=== PATIENT | male | born 1940 | race Caucasian/White ===

== ENCOUNTER → 2018-09-08 09:02 | Outpatient (CLI) | payer MEDICARE, OTHER, SELFPAY ==
--- NOTE | 2018-09-08 09:13 | AAVD_ITS ---
Reason For Study: AAA Aorta Measurements Aorta Doppler Measurements Proximal aorta measures3.15cm x 3.37cm. in cross-Peak systolic flow velocities within the proximal sectional axis. aorta measure 58 cm/sec. Proximal aorta measures3.12cm. in longitudinal Peak systolic flow velocities within the mid axis. aorta measure 81 cm/sec. Mid aorta measures2.08cm x 2.16cm. in cross- Peak systolic flow velocities within the distal sectional axis. aorta measure 62 cm/sec. Mid aorta measures2.04cm. in longitudinal axis. Distal aorta measures1.87cm x 1.94cm. in cross- sectional axis. Distal aorta measures1.76cm. in longitudinal axis. Left Iliac Artery Left iliac artery measures 1.03cm x 1.09 cm. in the cross-sectional axis. Left iliac artery measures 1.01 cm. in the longitudinal axis. Peak systolic velocity in the left iliac artery measures 109 cm/sec. Right Iliac Artery Right iliac artery measures 1.04cm x 0.98 cm. in the cross-sectional axis. Right iliac artery measures 1.03 cm. in the longitudinal axis. Peak systolic velocity in the right iliac artery measures 170 cm/sec. Procedure Aorta IVC Iliac vasculature or bypass grafts 01600. Mobile plaque noted Proximal Aorta. Exam performed in department. Interpretation Summary 1. 3.37 aortic aneurysm. 2. No aortoiliac stenosis. Ordering Physician: Adolfo Grossman Referring Physician: Zaki Wright Performed By: Margoth Marinelli, KAY, RVT
--- NOTE | 2018-09-08 09:13 | CDU_ITS ---
Reason For Study: Stenosis Rt. Velocities/BP Lt. Velocities/BP Prox CCA 31/0 cm/sec. Prox CCA 79/11 cm/sec. Mid CCA 26/0 cm/sec. Mid CCA 80/16 cm/sec. Dist CCA 44/0 cm/sec. Dist CCA 89/21 cm/sec. Rt ICA: No Flow. Prox ICA 261/52 cm/sec. Prox ECA 123/9 cm/sec. Mid ICA 117/24 cm/sec. Rt. Vert. 77/22 cm/sec. Dist ICA 64/27 cm/sec. Lt. ICA/CCA = 3.26. Prox ECA 283/35 cm/sec. Lt. Vert. 48/11 cm/sec. Right Extracranial There is heterogeneous, irregular atherosclerotic plaque noted in the right common carotid artery. There is heterogeneous, irregular atherosclerotic plaque noted in the right internal carotid artery. The right internal carotid artery is occluded. There is heterogeneous, irregular atherosclerotic plaque noted in the right external carotid artery. Antegrade flow is noted in the right vertebral artery. Left Extracranial There is heterogeneous, irregular atherosclerotic plaque noted in the left common carotid artery. There is heterogeneous, irregular atherosclerotic plaque noted in the left internal carotid artery. The atherosclerotic plaque causes acoustic shadowing. There is heterogeneous, irregular atherosclerotic plaque noted in the left external carotid artery. Antegrade flow is noted in the left vertebral artery. Procedure Carotid Duplex 32407. Prelim given to Gloria at Dr. Ferrell office. Exam performed in department. Interpretation Summary Moderate (50-69%) stenosis left extracranial internal carotid. Flow within the vertebral arteries is antegrade bilaterally. Right internal carotid artery is occluded. Ordering Physician: Adolfo Grossman Referring Physician: Zaki Wright Performed By: Isis CATALAN RDCS, Margoth and Student
--- NOTE | 2018-09-13 11:35 | LEAS ---
Arterial Study - Arterial Study Arterial Study: Date of scan 09/08/2018 X Interpreting physician: Dr. Grossman History: Patient with diabetes hyperlipidemia hypertension and coronary artery disease. Interpretation: Right lower extremity with fairly normal waveform down at the ankle out through the digits duplex shows triphasic flow with a PT with an ERIC 1.03 and a triphasic to biphasic waveform of the DP with an ERIC 0.97. Digit brachial index 0.66. Left lower extremity again adequate waveform down at the ankle out through the digits. Duplex shows triphasic flow the PT with an ERIC of 1.11 and biphasic at the DP with an ERIC 0.94. Digit brachial index 0.71. Impression: 1. No evidence of significant arterial occlusive disease at rest in this nonexercise patient with an ERIC of 1.03. 2. No evidence of significant arterial occlusive disease at rest and does not exercise patient with an ERIC of 1.11. 3. Borderline small vessel disease with the digit brachial index 0.66 on the right 0.71 on the left
--- NOTE | 2018-09-13 11:40 | LEAS_ITS ---
Arterial Study - Arterial Study Arterial Study: Date of scan 09/08/2018 X Interpreting physician: Dr. Grossman History: Patient with diabetes hyperlipidemia hypertension and coronary artery disease. Interpretation: Right lower extremity with fairly normal waveform down at the ankle out through the digits duplex shows triphasic flow with a PT with an ERIC 1.03 and a triphasic to biphasic waveform of the DP with an ERIC 0.97. Digit brachial index 0.66. Left lower extremity again adequate waveform down at the ankle out through the digits. Duplex shows triphasic flow the PT with an ERIC of 1.11 and biphasic at the DP with an ERIC 0.94. Digit brachial index 0.71. Impression: 1. No evidence of significant arterial occlusive disease at rest in this nonexercise patient with an ERIC of 1.03. 2. No evidence of significant arterial occlusive disease at rest and does not exercise patient with an ERIC of 1.11. 3. Borderline small vessel disease with the digit brachial index 0.66 on the right 0.71 on the left
== END ==
PROVIDERS: Family Provider Family Medicine; PCP Family Medicine; Referring Provider Surgery Vascular Surgery; Visit Provider Surgery Vascular Surgery
DX: I70.213 Atherosclerosis of native arteries of extremities with intermittent claudication, bilateral legs (principal); I71.4 Abdominal aortic aneurysm, without rupture; I11.9 Hypertensive heart disease without heart failure; I25.2 Old myocardial infarction; Z86.73 Personal history of transient ischemic attack (TIA), and cerebral infarction without residual deficits
CPT/HCPCS: 93880; 93922; 93978

== ENCOUNTER → 2021-03-05 07:53 | Outpatient (CLI) | payer MEDICARE, OTHER, SELFPAY ==
[2021-02-26 13:13] LABS: BUN 53 mg/dL (7-18)
[2021-02-26 15:09] LABS: Creatinine, Serum 1.63 mg/dL (0.70-1.30); EST Glomerular Filtration Rate 44 mL/min (>60); Est Glom Filt Rate - Afr Amer 53 mL/min (>60)
--- NOTE | 2021-03-05 07:56 | CT_ITS ---
STUDY: CTA OF THE ABDOMINAL AORTA AND BILATERAL LOWER EXTREMITIES REASON FOR EXAM: Male, 80 years old. AAA/STENOSIS/PAD/MYOCARDIAL INFACRTION/HEART DISEASE/HTN -- PT HAS VASCULAR STUDY AFTER CTA RADIATION DOSAGE (If Supplied By Facility): CTDIvol = ( 10.36 ) mGy, DLP = ( 1426.10 ) mGycm TECHNIQUE: Axial CT angiography multi-detector data acquisition was obtained from the hemidiaphragm to the bilateral feet following intravenous administration of IV 100mL Isovue-370. Axial images and MIP images were reconstructed from the axial data set. Post-processing of the angiographic images was performed, with multiplanar reformation and 3D reconstruction. Individualized dose optimization techniques were used for this CT. TECHNICAL QUALITY: Good COMPARISON: None. Descriptors of Narrowing: None (0%) Mild (< 50%) Moderate (50-70%) Severe (70-90%) Subtotal/Total Occlusion (90-100%) Non-Evaluable (technically non-diagnostic FINDINGS: Abdominal aorta: Borderline aneurysmal dilatation of the abdominal aorta measuring 2.9 x 2.0 cm. As described disease of aorta diffusely. Infrarenal abdominal aortic aneurysm measuring 3.8 x 4.1 cm, slightly increased in the interval, previously measuring 3.9 cm in maximum dimension. There is a mural thrombus at this level. Celiac and superior mesenteric arteries: Atherosclerotic disease with moderate to severe narrowing at the origin of the celiac artery. Mild narrowing at the origin of the superior mesenteric artery. Inferior mesenteric artery: No demonstrated narrowing. Right renal artery(arteries): Atherosclerotic disease with no significant narrowing. Left renal artery(arteries): Atherosclerotic disease with no significant narrowing. Right common iliac artery: Occlusion of the right common iliac artery, new in the interval. Right external iliac artery: Distal reconstitution with calcified of the splenic disease and areas of mild to moderate narrowings. Right internal iliac artery: Distal reconstitution with calcified of the splenic disease and areas of mild to moderate narrowings. Left common iliac artery: Calcified atherosclerotic disease with no significant narrowing, no aneurysm. Left external iliac artery: Calcified atherosclerotic disease with no significant narrowing, no aneurysm. Left internal iliac artery: Calcified atherosclerotic disease with no significant narrowing, no aneurysm. RIGHT LOWER EXTREMITY Right common femoral artery: Calcified atherosclerotic disease with approximately 50% narrowing. Right profundus femoris: No significant narrowing. Right superficial femoral: Occlusion of the right superficial femoral artery. Underlying calcified atherosclerotic disease. Right popliteal artery: Atherosclerotic disease with reconstitution of the popliteal artery. Right tibioperoneal trunk: Atherosclerotic disease with areas of trhs-sv-zbhcwigc stenosis. No occlusion. Right anterior tibial artery: Atherosclerotic disease with areas of [id number] stenosis. No occlusion. Right posterior tibial artery: Atherosclerotic disease with areas of vtgj-jg-ztnxaprq stenosis. No occlusion. Right peroneal artery: Atherosclerotic disease with areas of fvzc-fs-fahodpsz stenosis. No occlusion. LEFT LOWER EXTREMITY Left common femoral artery: Atherosclerotic disease with areas of mild stenosis. Left profundus femoris: No demonstrated narrowing. Left superficial femoral: Describe disease more severe distally with areas of moderate stenosis. Left popliteal artery: Atherosclerotic disease with multiple areas of moderate stenosis. Left tibioperoneal trunk: Atherosclerotic disease with no occlusion or high-grade stenosis. Left anterior tibial artery: Continuous vessel runoff to the level of the ankle. Left posterior tibial artery: Atherosclerotic disease more severe to the distal one third of the ankle with multiple areas of high-grade stenosis and possible occlusions distally. Left peroneal artery: Calcified atherosclerotic disease through the peroneal artery more severe otherwise continuous vessel runoff to the ankle. CT/CTA Abd w/Runoff W/WO Contrast IMPRESSION: Occlusion of the right common iliac artery with the distal reconstitution of the right external iliac artery. Occlusion of the right superficial femoral artery with likely distal reconstitution otherwise three-vessel runoff below the right knee. Atherosclerotic disease of the left lower extremities with areas of moderate stenosis, more significant at the popliteal and distal superficial artery. Two-vessel runoff through the anterior tibial artery peroneal artery below the knee with possible distal portions of the posterior tibial artery. Infrarenal aortic aneurysm with mural thrombus, slightly progressed in size in the interval. Electronically Signed: Génesis Saravia MD at 4:59 EDT , Service support ,
--- NOTE | 2021-03-05 08:23 | CDU_ITS ---
Reason For Study: Carotid stenosis Rt. Velocities/BP Lt. Velocities/BP Prox CCA 29.4 cm/sec. Prox CCA 61.9/13.5 cm/sec. Mid CCA 35.8 cm/sec. Mid CCA 36.6/13.5 cm/sec. Dist CCA 37.9/5.9 cm/sec. Dist CCA 52/15.7 cm/sec. Known ICA Occlusion. Prox ICA 236.7/55.7 cm/sec. Prox ECA 130.2/9.7 cm/sec. Mid ICA 96.6/18.9 cm/sec. Rt. Vert. 64.1/12.4 cm/sec. Dist ICA 73.6/20.6 cm/sec. Lt. ICA/CCA = 4.55. Prox ECA 117.4/20.6 cm/sec. Lt. Vert. 43.7/11.6 cm/sec. Right Extracranial There is heterogeneous, irregular atherosclerotic plaque noted in the right common carotid artery. The right internal carotid artery is occluded. There is heterogeneous, irregular atherosclerotic plaque noted in the right external carotid artery. Antegrade flow is noted in the right vertebral artery. Left Extracranial There is heterogeneous, irregular atherosclerotic plaque noted in the left common carotid artery. There is heterogeneous, irregular atherosclerotic plaque noted in the left internal carotid artery. The atherosclerotic plaque causes acoustic shadowing. There is heterogeneous, irregular atherosclerotic plaque noted in the left external carotid artery. Antegrade flow is noted in the left vertebral artery. Procedure Carotid Duplex 64734. This is a Carotid Duplex examination using B-mode, color flow and specral Doppler. Exam performed in department. VL/Carotid Duplex Ultrasound Interpretation Summary Moderate (50-69%) stenosis left extracranial internal carotid. Flow within the vertebral arteries is antegrade bilaterally. The right internal carotid artery appears to be totally occluded. Ordering Physician: Adolfo Grossman Referring Physician: Zaki Wright MD Performed By: Shira Gardner RVT
== END ==
PROVIDERS: PCP Family Medicine; Referring Provider Surgery Vascular Surgery; Visit Provider Surgery Vascular Surgery
DX: I71.4 Abdominal aortic aneurysm, without rupture (principal); I10 Essential (primary) hypertension; I73.9 Peripheral vascular disease, unspecified; I51.9 Heart disease, unspecified; I25.2 Old myocardial infarction; I63.231 Cerebral infarction due to unspecified occlusion or stenosis of right carotid arteries
CPT/HCPCS: 36415; 75635; 82565; 84520; 93880; Q9967

== ENCOUNTER 2022-02-04 08:33 | Outpatient (CLI) | payer MEDICARE, OTHER, SELFPAY ==
--- NOTE | 2022-02-04 08:55 | AAVD_ITS ---
Reason For Study: AAA Aorta Measurements Aorta Doppler Measurements Proximal aorta measures3.60 x 3.75cm. in cross- Peak systolic flow velocities within the proximal sectional axis. aorta measure 35.5 cm/sec. Proximal aorta measures3.55cm. in longitudinal Peak systolic flow velocities within the mid aorta axis. measure 35.5 cm/sec. Mid aorta measures2.29 x 2.27cm. in cross- Peak systolic flow velocities within the distal sectional axis. aorta measure 28.9 cm/sec. Mid aorta measures2.28cm. in longitudinal axis. Distal aorta measures2.01 x 2.01cm. in cross- sectional axis. Distal aorta measures2.02cm. in longitudinal axis. Left Iliac Artery Left iliac artery measures 1.07 x 1.07 cm. in the cross-sectional axis. Left iliac artery measures 1.07 cm. in the longitudinal axis. Peak systolic velocity in the left iliac artery measures 57.2 cm/sec. Right Iliac Artery Right iliac artery measures 0.99 x 0.99 cm. in the cross-sectional axis. Right iliac artery measures 1.02 cm. in the longitudinal axis. Peak systolic velocity in the right iliac artery measures 54.5 cm/sec. Procedure Aorta IVC Iliac vasculature or bypass grafts [id number]. Exam performed in department. VL/Abd Aortic/IVC Duplex scan Interpretation Summary No evidence of aortic iliac stenosis. 3.6 cm aortic aneurysm noted. Ordering Physician: Adolfo Grossman Referring Physician: Zaki Wright MD Performed By: Shira Gardner RVT
--- NOTE | 2022-02-04 08:56 | ART_ITS ---
Reason For Study: Stricture of artery Procedure A bilateral lower extremity continuous wave Doppler with analog waveform analysis and ankle brachial indexes. Left Segmental Pressures Left brachial= 112mmHg. Left posterior tibial artery = 76mmHg. Left dorsalis pedis artery = 76mmHg. Left digit = 72 mmHg. The left dorsalis pedis waveforms are biphasic. The left posterior tibial artery waveforms are biphasic. Right Segmental Pressures Right brachial= 117mmHg. Right posterior tibial artery = 59mmHg. Right dorsalis pedis artery = 64mmHg. Right digit = 41 mmHg. The right dorsalis pedis waveforms are monophasic. The right posterior tibial artery waveforms are monophasic. Indices The right ankle brachial index by the dorsalis pedis is 0.55. The right ankle brachial index by the posterior tibial artery is 0.50. The right digital-brachial index is 0.35. The left ankle brachial index by the dorsalis pedis is 0.65. The left ankle brachial index by the posterior tibial artery is 0.65. The left digital-brachial index is 0.62. VL/Ankle Brachial Index Interpretation Summary Right lower extremity with moderate occlusive disease with monophasic flow note d at the ankle. ERIC 0.55 with a digit brachial index 0.35. Left lower extremity with moderate occlu sive disease at rest with biphasic flow noted in ERIC 0.65 and a digit brachial index of 0.62. Ordering Physician: Adolfo Grossman Referring Physician: Zaki Wright MD Performed By: Shira Gardner RVT
== END 2022-02-04 23:59 | disposition home or self-care (01) ==
LOC: CVS 08:48
PROVIDERS: PCP Family Medicine; Visit Provider Surgery Vascular Surgery
DX: I70.213 Atherosclerosis of native arteries of extremities with intermittent claudication, bilateral legs (principal); I71.4 Abdominal aortic aneurysm, without rupture; I77.1 Stricture of artery
CPT/HCPCS: 93922; 93978

== ENCOUNTER → 2023-03-24 | Outpatient (CLI) | payer MEDICARE, OTHER, SELFPAY ==
--- NOTE | 2023-03-24 07:45 | ART_ITS ---
Reason For Study: stricture of artery Procedure A bilateral lower extremity continuous wave Doppler with analog waveform analysis and ankle brachial indexes. Left Segmental Pressures Left brachial= 135mmHg. Left posterior tibial artery = 89mmHg. Left dorsalis pedis artery = 114mmHg. Left digit = 77 mmHg. The left dorsalis pedis waveforms are biphasic. The left posterior tibial artery waveforms are biphasic. Right Segmental Pressures Right brachial= 131mmHg. Right posterior tibial artery = 99mmHg. Right dorsalis pedis artery = 84mmHg. Right digit = 58 mmHg. The right dorsalis pedis waveforms are monophasic. The right posterior tibial artery waveforms are monophasic. Indices The right ankle brachial index by the dorsalis pedis is .62. The right ankle brachial index by the posterior tibial artery is .73. The right digital-brachial index is .43. The left ankle brachial index by the dorsalis pedis is .84. The left ankle brachial index by the posterior tibial artery is .66. The left digital-brachial index is .57. VL/Ankle Brachial Index Interpretation Summary Bilateral mild disease with right monophasic and ERIC 0.73 and left biphasic and ERIC 0.84. DBI 0.43 and 0.57. Ordering Physician: Adolfo Grossman Performed By: Darian Crook RVT
--- NOTE | 2023-03-24 07:45 | AAVD_ITS ---
Reason For Study: AAA Aorta Measurements Aorta Doppler Measurements Proximal aorta measures3.3 x 3.9cm. in cross- Peak systolic flow velocities within the proximal sectional axis. aorta measure 36.1 cm/sec. Proximal aorta measures3.3cm. in longitudinal Peak systolic flow velocities within the mid aorta axis. measure 37.9 cm/sec. Mid aorta measures2.49 x 2.58cm. in cross- Peak systolic flow velocities within the distal sectional axis. aorta measure 32.4 cm/sec. Mid aorta measures2.38cm. in longitudinal axis. Distal aorta measures1.83 x 1.94cm. in cross- sectional axis. Distal aorta measures1.9cm. in longitudinal axis. Left Iliac Artery Left iliac artery measures .96 x .89 cm. in the cross-sectional axis. Left iliac artery measures .91 cm. in the longitudinal axis. Peak systolic velocity in the left iliac artery measures 90.4 cm/sec. Right Iliac Artery Right iliac artery measures 1.2 x 1.34 cm. in the cross-sectional axis. Right iliac artery measures 1.25 cm. in the longitudinal axis. Peak systolic velocity in the right iliac artery measures 119.4 cm/sec. Procedure Aorta IVC Iliac vasculature or bypass grafts [id number]. The exam was diagnostic. Exam performed in department. VL/Abd Aortic/IVC Duplex scan Interpretation Summary Proximal aortic aneurysm 3.3 x 3.9cm. Ordering Physician: Adolfo Grossman Performed By: Darian Crook RVT
--- NOTE | 2023-03-24 07:45 | CDU_ITS ---
Reason For Study: carotid stenosis Rt. Velocities/BP Lt. Velocities/BP Prox CCA 20.1 cm/sec. Prox CCA 56.0/6.9 cm/sec. Mid CCA 40.9 cm/sec. Mid CCA 57.0/16.3 cm/sec. Dist CCA 21.1 cm/sec. Dist CCA 49.4/18.2 cm/sec. Prox ECA 99.5/8.8 cm/sec. Prox ICA 233.7/43.0 cm/sec. Rt. Vert. 68.3/17.3 cm/sec. Mid ICA 82.6/17.6 cm/sec. Dist ICA 64.2/20.0 cm/sec. Lt. ICA/CCA = 4.1. Prox ECA 59.8/8.8 cm/sec. Lt. Vert. 64.1/12.4 cm/sec. Right Extracranial There is heterogeneous, irregular atherosclerotic plaque noted in the right common carotid artery. The right internal carotid artery is occluded. There is heterogeneous, irregular atherosclerotic plaque noted in the right external carotid artery. Antegrade flow is noted in the right vertebral artery. Left Extracranial There is heterogeneous, irregular atherosclerotic plaque noted in the left common carotid artery. There is heterogeneous, irregular atherosclerotic plaque noted in the left internal carotid artery. There is heterogeneous, irregular atherosclerotic plaque noted in the left external carotid artery. Antegrade flow is noted in the left vertebral artery. Unable to obtain velocities through the bulb due to calcified plaque. Procedure Carotid Duplex [id number]. This is a Carotid Duplex examination using B-mode, color flow and specral Doppler. The exam was diagnostic. Exam performed in department. VL/Carotid Duplex Ultrasound Interpretation Summary The right internal carotid artery appears to be totally occluded. Moderate (50- 69%) stenosis left extracranial internal carotid. Flow within the vertebral arteries is antegrade bilaterally. Ordering Physician: Adolfo Grossman Performed By: Darian Crook RVT
== END | disposition home or self-care (01) ==
LOC: CVS 07:44
PROVIDERS: PCP Family Medicine; Referring Provider Surgery Vascular Surgery; Visit Provider Surgery Vascular Surgery
DX: Z48.812 Encounter for surgical aftercare following surgery on the circulatory system (principal); I77.1 Stricture of artery; I70.213 Atherosclerosis of native arteries of extremities with intermittent claudication, bilateral legs; I71.40 Abdominal aortic aneurysm, without rupture, unspecified; I65.23 Occlusion and stenosis of bilateral carotid arteries
CPT/HCPCS: 93880; 93922; 93978

== ENCOUNTER 2023-08-19 15:40 | Inpatient (IN) | payer MEDICARE, OTHER, SELFPAY ==
[2023-08-19 16:17] VITALS: BP 111/70; PULSE 90; RESP 20; TEMP 36; O2SAT 94; BMI 24.0
[2023-08-19 17:16] VITALS: BMI 24.0
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
[2023-08-19 19:17] LABS: Vancomycin, Trough Level 30.1 ug/mL (5.0-15.0)
--- NOTE | 2023-08-19 19:39 | PCM.RX.CS ---
Consult Antibiotic Management Pharmacy has been consulted to manage selected antiobiotic: Vancomycin Type of Intervention Type of Consult: New start Suspected Infection Suspected Infection: Other Labs Labs: Vancomycin Trough 30.1 ug/mL (5.0-15.0) H 08/19/23 18:30 Goal Trough Goal Trough: 15-20 mcg/mL Pharmacy Plan for Drug Dosing Pharmacy Plan for Drug Dosing: NEW START IV VANCOMYCIN Consulting Physician: Dr. Tello Indication: Other Goal Trough: 15-20 SrCr: 1.06 (lab 08/19 from outside facility) CrCl: 53 mL/min Comments: Patient was on vancomycin 750mg IV Q24hr at outside facility. last administration time was 08/19 @1041. Nursing ordered a vancomycin trough upon admission which resulted in a value of 30.1; however, this was only 8hrs from last administered dose. Vancomycin Dose: If trough is within therapeutic range (15-20) may resume previous dose of 750mg IV Q24hr. Will not start vancomycin until trough results tomorrow to ensure pt is within therapeutic range. NOTE: Stop date on vancomycin will be 09/02/23 Pending Level: *RANDOM* level pending 08/20/23 @1000 Pharmacy Service will continue to monitor and adjust dosing as required.
[2023-08-19] MEDS: Atorvastatin Calcium 80 MG Tablet GT (21:18)
[2023-08-19] MEDS: MELATONIN 3 MG TABLET GT (21:18)
[2023-08-19] MEDS: Famotidine 20 MG Tablet PO (21:18)
[2023-08-19] MEDS: Carvedilol 12.5 MG Tablet GT (21:18)
[2023-08-19] MEDS: guaiFENesin 10 ML UDC (200MG/10ML) GT (21:18)
[2023-08-19] MEDS: Chlorhexidine 480 ML 15 ML PO (21:19)
[2023-08-19] MEDS: QUEtiapine 25 MG Tablet GT (21:19)
[2023-08-19] MEDS: Ezetimibe 10 MG Tablet GT (21:19)
[2023-08-19] MEDS: Jevity 1.5 1,000 ML 55 ML GT (21:20)
[2023-08-19] MEDS: Piperacil/Tazobactam 3.375 GM in 0.9% Normal Saline (50mL MB+) 50 ML IV (21:55)
[2023-08-19 22:00] VITALS: BP 100/66; PULSE 83; RESP 16; TEMP 36.6; O2SAT 100
[2023-08-19 22:53] LABS: Bedside Glucose 139 mg/dL (74-106)
[2023-08-19 23:43] VITALS: O2SAT 100
--- NOTE | 2023-08-20 02:25 | NURSING ---
PT pulled PEG tube out; area cleansed and covered with ABD pad; placed call to Dr. Tello, left voice message to return call.
[2023-08-20] MEDS: Piperacil/Tazobactam 3.375 GM in 0.9% Normal Saline (50mL MB+) 50 ML IV ×3 (04:37→21:14)
[2023-08-20 05:34] LABS: Bedside Glucose 123 mg/dL (74-106)
--- NOTE | 2023-08-20 05:55 | PCM.HOSP.N ---
Hospitalist Note Received message from nursing staff that patient pulled out his PEG tube at around 5:30 AM. Patient was transferred here from [facility] on 08/19. Per the nurse, patient has been quite agitated since arriving here and has been pulling at his lines and trying to take his gown off. Nurse, she put a type of padding over the PEG tube site for now. Before placing the padding, there was no overt drainage from the site. Does not appear to be an urgent issue, but patient will need his PEG tube replaced in order to receive nutrition going forward. Unclear if patient will need admitted to the hospital for this or not. Will discuss with my day team partners shortly on the best course of action for the patient.
[2023-08-20 07:23] LABS: Hemoglobin 10.3 g/dL (13.0-16.5); Mean Corp Hgb Conc 29.4 g/dL (32-36); Mean Corpuscular Hgb 27.5 pg (27.0-32.0); Mean Corpuscular Volume 93.6 fL (80-94); Mean Platelet Vol. 10.1 fl (6.2-12.0); Platelet Count 246 K/mm3 (150-450); RBC Distribution Width CV 17.2 % (11.6-14.6); RBC Distribution Width SD 58.8 fl (35.1-43.9); Red Blood Count 3.74 M/mm3 (4.6-6.2); White Blood Count 8.9 K/mm3 (4.4-11.0)
[2023-08-20 08:00] VITALS: BP 119/50; PULSE 86; RESP 16; TEMP 36.7; O2SAT 99
[2023-08-20 08:04] LABS: ALB/GLOB Ratio 0.6 RATIO (0.9-2.4); AST(SGOT) 27 U/L (15-37); Alanine Aminotransfer ALT/SGPT 37 U/L (16-61); Albumin, Serum 2.7 g/dL (3.2-5.0); Alkaline Phosphatase 105 U/L (45-117); Anion Gap 6 (5-15); BUN 49 mg/dL (7-18); BUN/Creat Ratio 35.3 RATIO (10-20); Calcium,Total 10.9 mg/dL (8.5-10.1); Chloride 106 mmol/L (98-107); Creatinine, Serum 1.39 mg/dL (0.70-1.30); EST Glomerular Filtration Rate 52 mL/min (>60); Est Glom Filt Rate - Afr Amer 63 mL/min (>60); Estimated Creatinine Clearance 41.01 ml/min; Globulin 4.6 g/dL (2.2-4.2); Glucose 151 mg/dL (74-106); Magnesium 2.4 mg/dL (1.6-2.6); Phosphorus 3.9 mg/dL (2.5-4.9); Potassium 4.4 mmol/L (3.5-5.1); Protein, Total 7.3 g/dL (6.4-8.2); Sodium Level 138 mmol/L (136-145); Uric Acid 8.4 mg/dL (3.5-7.2)
[2023-08-20 08:32] VITALS: O2SAT 100
[2023-08-20 10:36] LABS: Vancomycin, Random Level 23.2 ug/mL (0.0-15.0)
--- NOTE | 2023-08-20 11:00 | NURSING ---
Patient had pulled his peg tube during the night. Dr. Tello will speak to Dr. Viramontes for consult to replace peg tube. aware and agreeing. Patient also had gross hematuria around penile area this Am when this nurse took over the shift and no urine drainage noted and Serna replaced by this nurse so patient must have pulled that out as well. Patient is restless and can be agitated and combative. He will follow commands but only for a short time. Alert to self at times at the most from this nurse. Patient will whisper things that do not make sense. Will continue to montor.
[2023-08-20] MEDS: Dext 5%-0.45% NS 1,000 ML 75 ML IV (11:07)
[2023-08-20] MEDS: Chlorhexidine 480 ML 15 ML PO ×2 (11:42→21:17)
[2023-08-20] MEDS: Insulin Lispro 100 UNIT/ML INSULN.PEN SC ×3 (11:43→23:14)
--- NOTE | 2023-08-20 12:06 | EKG12_ITS ---
Test Reason : CONFUSION Blood Pressure : / mmHG Vent. Rate : 121 BPM Atrial Rate : 375 BPM P-R Int : 000 ms QRS Dur : 092 ms QT Int : 322 ms P-R-T Axes : 000 103 034 degrees QTc Int : 457 ms Atrial fibrillation with premature ventricular or aberrantly conducted complexes Nonspecific ST and T wave abnormality Abnormal ECG Confirmed by MD ROCCO, HERMINIA ([id number]), technical writer and editor MINOO AYALA ([id number]) on 09/06/2023 11:17:22 AM Referred By: Jodi Tello Confirmed By:HERMINIA VALIENTE MD
[2023-08-20 12:09] LABS: Bedside Glucose 150 mg/dL (74-106)
[2023-08-20] MEDS: Enoxaparin 40 MG/0.4 ML Syringe SC (12:54)
[2023-08-20 13:35] VITALS: BP 115/60; PULSE 88
[2023-08-20] MEDS: Ziprasidone IM 20 MG/ML VIAL 10 MG IM (13:38)
[2023-08-20] MEDS: dilTIAZem 25 MG/5 ML Vial 10 MG IV BOLUS (13:41)
[2023-08-20] MEDS: cloNIDine HCl 0.1 MG Patch TD (14:00)
[2023-08-20 14:01] VITALS: BP 125/59; PULSE 62
[2023-08-20] MEDS: MorphINE SOLN 10 MG/0.5 ML PO.SYRINGE 5 MG SL ×2 (14:18→19:21)
--- NOTE | 2023-08-20 15:17 | PCM.RU.PYE ---
Admission Information Primary Diagnosis:: Debility due to multi trauma Status Changes from Prescreening?: No changes Identified Actual Problem List:: DVT, Infection, Skin Intergrity, Pain, ALteration in Cmfrt, Cognitve Impr/Memory Loss, Alteration in Sleep, Alteration in Nutrition, Mobility Impaired, Self Care Deficit, Know.Dfct/Disease Process, BP, Hypertension and Fluid Change-Dehydration Potential Problem List:: DVT, Bleeding, Infection, UTI, Aspiration, Falls, Skin Integrity and Depression Risk of Complications DVT: MIC Hose and - (Lovenox 40 mg subcu daily) Bleeding: Monitor Lab Values, Nursing to Teach Precautions for anti-coagulation therapy., Wound, if applicable, to be assessed every shift. and Stroke patients assessed for lethargy or change in status. Infection: Clinical Staff to Monitor for S/S of infection: and S/S of infection include fever, redness, warmth, etc. Urinary Tract Infection: Monitor for frequency, burning, discomfort, or incontinence. and Nursing will obtain urine sample for urinalysis and C&S when ordered. Aspiration: Clinical staff will monitor for coughing, drooling, congestion., Speech will evaluate swallowing and dsyphasia. and Nursing will monitor patient swallowing during meals. Falls: Patient will be evaluated for Fall Precautions and Patient will be placed on Fall Precautions as indicated per protocol. Skin Breakdown: Nursing will assess skin daily using assessment tool. and Nursing will place on Skin Breakdown Precautions as indicated. Pain: Clinical staff will assess patient's pain level per protocol., Medications will be given, if needed, and the pain level reassessed. and Other methods: Massage, distraction, decrease stimulus, etc. used PRN. Plan of Care Patient requires physician specializing in physical medicine and rehab oversight to provide close medical supervision of rehab issues including: Pain Management, Sleep Problems, Bowel and Bladder, Medical and co-morbidity Management, DVT prophylaxis, Rehabilitation Leadership and Coordination of treatment team Patient needs Physical Therapy: For a minimum of 1 hour and At least 5 out of 7 days Patient needs Physical Therapy to improve:: Mobility, Strengthening, Transfers, Stretching, ROM, Endurance, Stairs, Gait and Balance Patient needs Occupational Therapy: For a minimum of 1 hour and At least 5 out of 7 days Patient needs Occupational Therapy to improve ADL's incl.: Eating, Grooming, Bathing, Dressing, Toileting, Toilet transfers, Community Reintegration, Higher functioning activities, Household tasks, Adaptive Equipment, Splinting and Other activities as determined Patient requires speech therapy: For a minimum of 1 hour and At least 5 out of 7 days Patient requires speech therapy for: Swallowing, Cognition, Language Skills and Compensatory Strategies Patient requires 24/7 Rehabilitation Nursing for: Pain Issues, Identifying and preventing risk factors, Monitoring and reporting current medical conditions, Assisting with ambulation, transfer, and all ADL's, Teaching patients about disease process and medications, Family teaching, Providing safe environment, Bowel and Bladder Issues, Skin integrity and Medication Management Patient needs Programmer Developer/ Case Management for: Discharge Planning, Arranging Home Equipment or Services and Family Interventions Patient needs Dietary and Nutrition Services for: Adequate Nutrition, Nutritional Supplements and Nutritional Education Goals Patient will remain: free from falls Patient will perform bed mobility at: MOD I level of assist. Patient will complete transfers from bed to chair at: - (min assist to stand and pivot to the BSC and the chair by DC.) Patient will ambulate: - (125 feet with minimal assistance with a front wheel walker) Patient will complete upper body dressing at: MOD I level of assist. (at least 80% of the time) Patient will complete lower body dressing at: - (Moderate assistance) Patient will complete toileting at: - (will discuss with OT what the goals are for this and for toilet transfer and bathing. ) Patient will achieve: - (1 curb step with minimal assistance and a wheeled walker) Patient will have pain level of: of 3 or less Patient's skin will: remain intact Patient will receive: adequate nutrition. Discharge Planning Pt Prognosis for Sig. Practical Improv. w/in Reasonable Time: Fair Estimated Length of stay (days): 40 Anticipated D/C Destination: TBD Was Preadmission Assessment Accurate?: Yes
--- NOTE | 2023-08-20 16:16 | PCM.RX.CS ---
Consult Antibiotic Management Pharmacy has been consulted to manage selected antiobiotic: Vancomycin Type of Intervention Type of Consult: Follow-up Suspected Infection Suspected Infection: Other Labs Labs: Sodium 138 mmol/L (136-145) 08/20/23 07:12 Potassium 4.4 mmol/L (3.5-5.1) 08/20/23 07:12 Chloride 106 mmol/L (98-107) 08/20/23 07:12 Carbon Dioxide 26.0 mmol/L (21.0-32.0) 08/20/23 07:12 Anion Gap 6 (5-15) 08/20/23 07:12 BUN 49 mg/dL (7-18) H 08/20/23 07:12 Creatinine 1.39 mg/dL (0.70-1.30) H 08/20/23 07:12 Est GFR (MDRD) Af Amer 63 mL/min (>60) 08/20/23 07:12 Est GFR (MDRD) Non-Af 52 mL/min (>60) L 08/20/23 07:12 BUN/Creatinine Ratio 35.3 RATIO (10-20) H 08/20/23 07:12 Glucose 151 mg/dL (74-106) H 08/20/23 07:12 Vancomycin Trough 30.1 ug/mL (5.0-15.0) H 08/19/23 18:30 Random Vancomycin 23.2 ug/mL (0.0-15.0) H 08/20/23 10:15 Goal Trough Goal Trough: 15-20 mcg/mL Pharmacy Plan for Drug Dosing Pharmacy Plan for Drug Dosing: VANCOMYCIN LEVEL RECEIVED Current Vancomycin Dose: on hold. Number of Doses Received: pt received doses from previous facility. Vancomycin Level: 1st level was 30.1 (8 hours post admin), next random level was 23.2 Hours Since Last Dose: ~24 hours since last dose Renal Function: SrCr 1.39 Renal Function Trend: SrCr increasing Lab/Micro: Vancomycin Plan/Comments: recommend continuing to hold vancomycin until random level is < 20. Pending Level: 08/21/23 at 1000 Pharmacy Service will continue to monitor and adjust dosing as required. Follow-Up Labs Follow-Up Labs: Trough: Vancomycin (08/21/23 at 1000 (random level))
[2023-08-20] MEDS: Haloperidol Lactate 5 MG/ML Vial 2 MG IM ×2 (16:47→21:18)
[2023-08-20 17:53] LABS: Bedside Glucose 159 mg/dL (74-106)
[2023-08-20 19:37] VITALS: BP 126/70; PULSE 67; RESP 17; TEMP 36.6; O2SAT 99
[2023-08-20 21:00] VITALS: BMI 24.0
--- NOTE | 2023-08-20 21:29 | NURSING ---
Pt restless in bed. Staff found pillows thrown onto floor. Pt tugging at MULTANI and IV, fidgety, and agitated. PRN Haldol given. Pt repositioned in bed and lights dimmed.
[2023-08-20 22:00] VITALS: PULSE 67; RESP 15; O2SAT 93
[2023-08-21 00:23] LABS: Bedside Glucose 159 mg/dL (74-106)
[2023-08-21] MEDS: MorphINE SOLN 10 MG/0.5 ML PO.SYRINGE 5 MG SL ×2 (00:27→23:56)
--- NOTE | 2023-08-21 00:57 | NURSING ---
Pt continues to be restless and fidgety. Pt reclining in bed but has not slept as yet. Roxanol PRN given d/t continuous restlessness and facial grimacing. Pt continues to remove bilat Prevalon cushioned boots. Pillows and blankets are continually disheveled. Pt not relaxing in bed with arms in motion and legs squirming from side to side of bed.
[2023-08-21] MEDS: Piperacil/Tazobactam 3.375 GM in 0.9% Normal Saline (50mL MB+) 50 ML IV ×3 (05:06→21:09)
[2023-08-21] MEDS: Insulin Lispro 100 UNIT/ML INSULN.PEN SC ×4 (05:50→23:14)
[2023-08-21 06:11] LABS: Bedside Glucose 189 mg/dL (74-106)
[2023-08-21 08:28] VITALS: BP 122/62; PULSE 97; RESP 16; TEMP 37.1; O2SAT 97
[2023-08-21] MEDS: Enoxaparin 40 MG/0.4 ML Syringe SC (09:59)
[2023-08-21] MEDS: Chlorhexidine 480 ML 15 ML PO ×2 (10:10→21:11)
[2023-08-21] MEDS: Dext 5%-0.45% NS 1,000 ML 75 ML IV (10:28)
[2023-08-21 10:30] LABS: Vancomycin, Random Level 16.4 ug/mL (0.0-15.0)
--- NOTE | 2023-08-21 11:24 | PCM.RX.CS ---
Consult Antibiotic Management Pharmacy has been consulted to manage selected antiobiotic: Vancomycin Type of Intervention Type of Consult: Follow-up Suspected Infection Suspected Infection: Other Labs Labs: Sodium 138 mmol/L (136-145) 08/20/23 07:12 Potassium 4.4 mmol/L (3.5-5.1) 08/20/23 07:12 Chloride 106 mmol/L (98-107) 08/20/23 07:12 Carbon Dioxide 26.0 mmol/L (21.0-32.0) 08/20/23 07:12 Anion Gap 6 (5-15) 08/20/23 07:12 BUN 49 mg/dL (7-18) H 08/20/23 07:12 Creatinine 1.39 mg/dL (0.70-1.30) H 08/20/23 07:12 Est GFR (MDRD) Af Amer 63 mL/min (>60) 08/20/23 07:12 Est GFR (MDRD) Non-Af 52 mL/min (>60) L 08/20/23 07:12 BUN/Creatinine Ratio 35.3 RATIO (10-20) H 08/20/23 07:12 Glucose 151 mg/dL (74-106) H 08/20/23 07:12 Vancomycin Trough 30.1 ug/mL (5.0-15.0) H 08/19/23 18:30 Random Vancomycin 16.4 ug/mL (0.0-15.0) H 08/21/23 10:00 Goal Trough Goal Trough: 15-20 mcg/mL Pharmacy Plan for Drug Dosing Pharmacy Plan for Drug Dosing: VANCOMYCIN LEVEL RECEIVED Current Vancomycin Dose: On hold from previous facility Number of Doses Received: 0 at [facility] Vancomycin Level: random level resulted at 16.4 Hours Since Last Dose: ~48 hours Renal Function: Last SrCr level was 1.39 Renal Function Trend: SrCr upon admission was 1.06, now 1.39 Lab/Micro: Vancomycin Plan/Comments: level is within ordered range of 15-20. Patient was on 750mg q24 at previous facility. 24 hour trough was 23.2. recommend re-starting vancomycin at 500mg q24h and checking a trough prior to the 3rd dose Pending Level: 08/23/23 at 1130 Pharmacy Service will continue to monitor and adjust dosing as required. Follow-Up Labs Follow-Up Labs: Trough: Vancomycin (08/23/23 at 1130)
[2023-08-21 11:35] LABS: Bedside Glucose 189 mg/dL (74-106)
[2023-08-21] MEDS: Vancomycin IV 500 MG/100 ML BAG 100 MG IV (11:57)
[2023-08-21 17:52] LABS: Bedside Glucose 168 mg/dL (74-106)
[2023-08-21 19:23] VITALS: BP 142/71; PULSE 81; RESP 20; TEMP 37; O2SAT 95
[2023-08-21 20:43] VITALS: BMI 24.0
[2023-08-21 20:45] VITALS: PULSE 80; RESP 18; O2SAT 96
[2023-08-21 23:41] LABS: Bedside Glucose 163 mg/dL (74-106)
[2023-08-22] VITALS (7 sets, daily range): BP systolic 90–124; BP diastolic 52–84; PULSE 65–106; RESP 15–18; TEMP 36.4–36.7; O2SAT 94–99; BMI 24.0
[2023-08-22] MEDS: Insulin Lispro 100 UNIT/ML INSULN.PEN SC ×2 (05:42→12:32)
[2023-08-22 06:23] LABS: Anion Gap 5 (5-15); BUN 31 mg/dL (7-18); BUN/Creat Ratio 26.7 RATIO (10-20); Calcium,Total 10.5 mg/dL (8.5-10.1); Chloride 111 mmol/L (98-107); Creatinine, Serum 1.16 mg/dL (0.70-1.30); EST Glomerular Filtration Rate 64 mL/min (>60); Est Glom Filt Rate - Afr Amer 78 mL/min (>60); Estimated Creatinine Clearance 49.14 ml/min; Glucose 185 mg/dL (74-106); Potassium 3.5 mmol/L (3.5-5.1); Sodium Level 142 mmol/L (136-145)
[2023-08-22 06:59] LABS: Bedside Glucose 181 mg/dL (74-106)
[2023-08-22] MEDS: Piperacil/Tazobactam 3.375 GM in 0.9% Normal Saline (50mL MB+) 50 ML IV ×3 (07:00→21:30)
[2023-08-22] MEDS: 0.9% Normal Saline (1000mL) 1,000 ML 15 ML IV (07:47)
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
--- NOTE | 2023-08-22 09:56 | OP.CCLET_ITS ---
08/22/2023 Zaki Wright Re : Upper GI endoscopy procedure for Vitaly Bragadestiny Wright This procedure was performed on Tuesday, August 22, 2023. My impressions and recommendations are as follows: Impressions : - No gross lesions in the entire stomach. - No gross lesions in the first portion of the duodenum. - An endoscopically removable PEG placement was successfully completed. - No specimens collected. Recommendations : - Return patient to referring hospital for ongoing care. - Please follow the post-PEG recommendations including: advance food and medications per primary care provider. - Continue present medications. My findings are described in the full procedure note, which is enclosed. If I can be of further assistance, please feel free to contact me at . Sincerely, Gumaro Viramontes, 08/22/2023 9:56:00 AM This report has been signed electronically.
--- NOTE | 2023-08-22 09:56 | OP.EGD_ITS ---
Patient Name: Vitaly Boone Procedure Date: 08/22/2023 9:18 AM Date of : 1940 Age: 82 Procedure: Upper GI endoscopy Indications: Dysphagia Providers: Gmuaro Viramontes DO Referring MD: Sary Tello Medicines: Monitored Anesthesia Care Patient Profile: This is an 82 year old male. Refer to note in patient chart for documentation of history and physical. Patient has symptoms of dysphagia with both liquids and solids. Complications: No immediate complications. Procedure: Pre-Anesthesia Assessment: - Prior to the procedure, a History and Physical was performed, and patient medications and allergies were reviewed. The patient is competent. The risks and benefits of the procedure and the sedation options and risks were discussed with the patient. All questions were answered and informed consent was obtained. Patient identification and proposed procedure were verified in the pre-procedure area. Mental Status Examination: alert and oriented. Airway Examination: normal oropharyngeal airway and neck mobility. Respiratory Examination: clear to auscultation. CV Examination: normal. Prophylactic Antibiotics: The patient does not require prophylactic antibiotics. Prior Anticoagulants: The patient has taken no anticoagulant or antiplatelet agents. ASA Grade Assessment: IV - A patient with severe systemic disease that is a constant threat to life. After reviewing the risks and benefits, the patient was deemed in satisfactory condition to undergo the procedure. The anesthesia plan was to use monitored anesthesia care (MAC). Immediately prior to administration of medications, the patient was re-assessed for adequacy to receive sedatives. The heart rate, respiratory rate, oxygen saturations, blood pressure, adequacy of pulmonary ventilation, and response to care were monitored throughout the procedure. The physical status of the patient was re-assessed after the procedure. After obtaining informed consent, the endoscope was passed under direct vision. Throughout the procedure, the patient's blood pressure, pulse, and oxygen saturations were monitored continuously. The gastroscope was introduced through the mouth, and advanced to the second part of duodenum. The upper GI endoscopy was accomplished without difficulty. The patient tolerated the procedure well. Scope In: 9:36:30 AM Scope Out: 9:49:13 AM Total Procedure Duration Time 0 hours 12 minutes 43 seconds Findings: The exam of the esophagus was otherwise normal. No gross lesions were noted in the entire examined stomach. The patient was placed in the supine position for PEG placement. The stomach was insufflated to appose gastric and abdominal loyola. A site was located in the body of the stomach with excellent transillumination for placement. The abdominal wall was marked and prepped in a sterile manner. The area was anesthetized with 5 mL of 0.5% lidocaine. The trocar needle was introduced through the abdominal wall and into the stomach under direct endoscopic view. A snare was introduced through the endoscope and opened in the gastric lumen. The guide wire was passed through the trocar and into the open snare. The snare was closed around the guide wire. The endoscope and snare were removed, pulling the wire out through the mouth. A skin incision was made at the site of needle insertion. The endoscopically removable 20 Fr Bard gastrostomy tube was lubricated. The G-tube was tied to the guide wire and pulled through the mouth and into the stomach. The trocar needle was removed, and the gastrostomy tube was pulled out from the stomach through the skin. The external bumper was attached to the gastrostomy tube, and the tube was cut to remove the guide wire. The final position of the gastrostomy tube was confirmed by relook endoscopy, and skin marking noted to be 4 cm at the external bumper. The final tension and compression of the abdominal wall by the PEG tube and external bumper were checked and revealed that the bumper was loose and not touching the skin. The feeding tube was capped, and the tube site cleaned and dressed. No gross lesions were noted in the first portion of the duodenum. Impression: - No gross lesions in the entire stomach. - No gross lesions in the first portion of the duodenum. - An endoscopically removable PEG placement was successfully completed. - No specimens collected. Recommendation: - Return patient to referring hospital for ongoing care. - Please follow the post-PEG recommendations including: advance food and medications per primary care provider. - Continue present medications. Procedure Code(s): --- Professional --- 40262, Esophagogastroduodenoscopy, flexible, transoral; with directed placement of percutaneous gastrostomy tube CPT copyright 2021 [employer]. All rights reserved. The codes documented in this report are preliminary and upon drywall application supervisor review may be revised to meet current compliance requirements. Gumaro Viramontes DO 08/22/2023 9:56:00 AM This report has been signed electronically. Number of Addenda: 0 Note Initiated On: 08/22/2023 9:18 AM
[2023-08-22 12:30] LABS: Bedside Glucose 161 mg/dL (74-106)
[2023-08-22] MEDS: Vancomycin IV 500 MG/100 ML BAG 100 MG IV (12:32)
[2023-08-22] MEDS: Chlorhexidine 480 ML 15 ML PO ×2 (12:35→21:38)
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
[2023-08-22] MEDS: Dext 5%-0.45% NS 1,000 ML 75 ML IV (14:57)
--- NOTE | 2023-08-22 16:49 | CHAPLAIN ---
Type of Pastoral Visit ___ Initial Visit ___ Follow-up Visit ___ On-call Visit ___ General Patient Visit ___ Spiritual Assessment ___ Family Conference ___ Bereavement ___ Rapid Response ___ Code Blue ___ Other (describe below) Pastoral Care Referral From ___ Patient ___ Family ___ Nurse ___ Physician ___ Plc Engineer ___ Poultry Helper ___ Other (describe below) Sacrament/Intervention ___ Active listening ___ Anointing ___ Congregational ___ Bereavement ___ Communion ___ Liane exploration ___ ___ Life review ___ Prayer ___ Reconciliation ___ Sacrament of Sick ___ Supportive presence ___ Wedding ___ Other (describe below) Pastoral Comments patient is post op and is sound asleep; left a calling card and will attempt visit another day
[2023-08-22] MEDS: Potassium Chloride Oral Soln 20 MEQ/15 ML UDC 40 MEQ PO (16:57)
[2023-08-22] MEDS: Juven (unflavored) Packet 1 PACKET GT (16:57)
[2023-08-22] MEDS: Jevity 1.5 1,000 ML 25 ML GT (16:58)
[2023-08-22 17:43] LABS: Bedside Glucose 144 mg/dL (74-106)
[2023-08-22 18:30] LABS: Vitamin D,25 Hydroxy 43.1 ng/mL
[2023-08-22] MEDS: Haloperidol Lactate 5 MG/ML Vial 2 MG IM (19:06)
[2023-08-22] MEDS: Zoledronic Acid 4 MG in 0.9% Normal Saline (100mL Bag) 100 ML 210 MG IV (20:32)
[2023-08-22] MEDS: Carvedilol 12.5 MG Tablet GT (21:36)
[2023-08-22] MEDS: Ezetimibe 10 MG Tablet GT (21:36)
[2023-08-22] MEDS: Atorvastatin Calcium 80 MG Tablet GT (21:36)
[2023-08-22] MEDS: Mirtazapine 15 MG Tablet PO (21:36)
[2023-08-22] MEDS: MorphINE SOLN 10 MG/0.5 ML PO.SYRINGE 5 MG SL (23:56)
--- NOTE | 2023-08-23 | NURSING ---
Residual 55ml, Jevity rate increased to 35ml/hr. HOB up 30 degrees. Pt repositioned in bed.
[2023-08-23 00:18] LABS: Bedside Glucose 147 mg/dL (74-106)
[2023-08-23] MEDS: Haloperidol Lactate 5 MG/ML Vial 2 MG IM (03:13)
[2023-08-23] MEDS: MorphINE SOLN 10 MG/0.5 ML PO.SYRINGE 5 MG SL (04:10)
[2023-08-23 04:31] VITALS: BMI 24.5
[2023-08-23] MEDS: Piperacil/Tazobactam 3.375 GM in 0.9% Normal Saline (50mL MB+) 50 ML IV ×3 (05:12→21:12)
[2023-08-23 06:59] LABS: Bedside Glucose 135 mg/dL (74-106)
[2023-08-23 08:02] VITALS: O2SAT 96
[2023-08-23] MEDS: Potassium Chloride Oral Soln 20 MEQ/15 ML UDC 40 MEQ GT (08:07)
[2023-08-23] MEDS: Carvedilol 12.5 MG Tablet GT ×2 (08:07→21:12)
[2023-08-23] MEDS: Juven (unflavored) Packet 1 PACKET GT ×2 (08:07→17:49)
[2023-08-23] MEDS: Aspirin 81 MG TAB.CHEW GT (08:07)
[2023-08-23] MEDS: Colchicine 0.6 MG TABLET GT (08:07)
[2023-08-23] MEDS: Chlorhexidine 480 ML 15 ML PO ×2 (08:08→21:12)
[2023-08-23] MEDS: Enoxaparin 40 MG/0.4 ML Syringe SC (08:20)
[2023-08-23 08:45] VITALS: BP 108/60; PULSE 73; RESP 20; TEMP 35.8; O2SAT 97
[2023-08-23 08:46] VITALS: BMI 24.5
[2023-08-23 08:47] VITALS: BMI 24.5
[2023-08-23] MEDS: 0.9% Normal Saline (500mL Bag) 500 ML 250 ML IV (10:41)
[2023-08-23 11:56] LABS: Vancomycin, Trough Level 13.9 ug/mL (5.0-15.0)
[2023-08-23] MEDS: Insulin Lispro 100 UNIT/ML INSULN.PEN SC (11:59)
[2023-08-23] MEDS: Vancomycin Trough/Random Due 1 LAB MC (12:01)
[2023-08-23] MEDS: QUEtiapine 25 MG Tablet GT ×2 (12:01→21:12)
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
[2023-08-23] MEDS: Vancomycin HCl 750 MG in 0.9% Normal Saline (250mL Bag) 250 ML 250 MG IV (12:17)
[2023-08-23 12:23] LABS: Bedside Glucose 153 mg/dL (74-106)
--- NOTE | 2023-08-23 15:52 | CHAPLAIN ---
Type of Pastoral Visit ___ Initial Visit ___ Follow-up Visit ___ On-call Visit ___ General Patient Visit ___ Spiritual Assessment ___ Family Conference ___ Bereavement ___ Rapid Response ___ Code Blue ___ Other (describe below) Pastoral Care Referral From ___ Patient ___ Family ___ Nurse ___ Physician ___ Art Framing Manager ___ Sales Analyst ___ Other (describe below) Sacrament/Intervention ___ Active listening ___ Anointing ___ Congregational ___ Bereavement ___ Communion ___ Liane exploration ___ ___ Life review ___ Prayer ___ Reconciliation ___ Sacrament of Sick ___ Supportive presence ___ Wedding ___ Other (describe below) Pastoral Comments second day and second attempt to visit the patient; he is sleeping; on advice from staff to let him sleep
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
[2023-08-23 18:05] LABS: Bedside Glucose 147 mg/dL (74-106)
[2023-08-23 19:43] VITALS: BP 108/54; PULSE 72; RESP 20; TEMP 36.4; O2SAT 95
[2023-08-23 20:21] VITALS: BMI 24.5
--- NOTE | 2023-08-23 20:26 | NURSING ---
TF residual >100 and will hold per order for 1 hour. Will recheck in 1 hour.
[2023-08-23] MEDS: Mirtazapine 15 MG Tablet PO (20:40)
[2023-08-23 20:55] VITALS: PULSE 72; RESP 19
[2023-08-23] MEDS: Metoclopramide 5 MG TABLET GT (21:12)
[2023-08-23] MEDS: Atorvastatin Calcium 80 MG Tablet GT (21:12)
[2023-08-23] MEDS: Ezetimibe 10 MG Tablet GT (21:12)
[2023-08-23 23:35] LABS: Bedside Glucose 130 mg/dL (74-106)
[2023-08-24] MEDS: MorphINE SOLN 10 MG/0.5 ML PO.SYRINGE 5 MG SL ×2 (03:25→22:00)
[2023-08-24] MEDS: Jevity 1.5 1,000 ML 45 ML GT (04:10)
[2023-08-24] MEDS: Piperacil/Tazobactam 3.375 GM in 0.9% Normal Saline (50mL MB+) 50 ML IV ×3 (05:28→21:45)
[2023-08-24] MEDS: Insulin Lispro 100 UNIT/ML INSULN.PEN SC ×2 (05:43→12:06)
[2023-08-24 05:49] LABS: Absolute Lymphocyte Count 0.99 X10^3/uL (0.83-4.51); Absolute Neutrophil Count 4.9 X10^3/uL (2.0-7.7); Basophil# 0.04 X10^3/uL; Basophil% 0.5 % (0-1); Eosinophil# 0.91 X10^3/uL; Eosinophils% 11.6 % (0-5); Hematocrit 29.1 % (40-54); Hemoglobin 8.5 g/dL (13.0-16.5); Lymphocyte # 0.99 X10^3/ul (0.83-4.51); Lymphocyte % 12.7 % (19-41); Mean Corp Hgb Conc 29.2 g/dL (32-36); Mean Corpuscular Hgb 27.7 pg (27.0-32.0); Mean Corpuscular Volume 94.8 fL (80-94); Mean Platelet Vol. 10.1 fl (6.2-12.0); Monocyte# 0.92 X10^3/uL; Monocyte% 11.8 % (0-10); NRBC Flagged by Analyzer 0 % (0-5); Neutrophil # 4.92 X10^3/uL (2.7-7.7); Neutrophil % 62.9 % (47-70); Platelet Count 191 K/mm3 (150-450); RBC Distribution Width CV 17.6 % (11.6-14.6); RBC Distribution Width SD 60.4 fl (35.1-43.9); Red Blood Count 3.07 M/mm3 (4.6-6.2); White Blood Count 7.8 K/mm3 (4.4-11.0)
[2023-08-24 05:52] VITALS: BMI 24.7
[2023-08-24 06:11] LABS: Anion Gap 5 (5-15); BUN 42 mg/dL (7-18); BUN/Creat Ratio 43.3 RATIO (10-20); Calcium,Total 9.5 mg/dL (8.5-10.1); Chloride 117 mmol/L (98-107); Creatinine, Serum 0.97 mg/dL (0.70-1.30); EST Glomerular Filtration Rate 79 mL/min (>60); Est Glom Filt Rate - Afr Amer 96 mL/min (>60); Estimated Creatinine Clearance 58.76 ml/min; Glucose 173 mg/dL (74-106); Potassium 3.9 mmol/L (3.5-5.1); Sodium Level 146 mmol/L (136-145)
[2023-08-24 06:19] LABS: Bedside Glucose 174 mg/dL (74-106)
[2023-08-24 06:40] VITALS: O2SAT 97
[2023-08-24 07:55] LABS: PTHIN 35.6 pg/mL (18.4-80.1)
[2023-08-24] MEDS: Enoxaparin 40 MG/0.4 ML Syringe SC (08:27)
[2023-08-24] MEDS: Potassium Chloride Oral Soln 20 MEQ/15 ML UDC 40 MEQ GT (08:27)
[2023-08-24] MEDS: Aspirin 81 MG TAB.CHEW GT (08:27)
[2023-08-24] MEDS: QUEtiapine 25 MG Tablet GT ×2 (08:28→21:59)
[2023-08-24] MEDS: Metoclopramide 5 MG TABLET GT ×2 (08:28→21:50)
[2023-08-24] MEDS: Juven (unflavored) Packet 1 PACKET GT ×2 (08:28→16:30)
[2023-08-24] MEDS: Carvedilol 12.5 MG Tablet GT ×2 (08:28→21:47)
[2023-08-24] MEDS: Colchicine 0.6 MG TABLET GT (08:29)
[2023-08-24 08:34] LABS: Albumin, Serum 2.2 g/dL (3.2-5.0)
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
[2023-08-24 08:56] VITALS: BP 122/55; PULSE 92; RESP 20; TEMP 35.9; O2SAT 94
--- NOTE | 2023-08-24 09:20 | RAD_ITS ---
STUDY: X-RAY CHEST REASON FOR EXAM: Male, 82 years old. Tachypnea TECHNIQUE: Single AP portable view of the chest. COMPARISON: None. FINDINGS: Patchy left lower lobe infiltrate with blunting of the left costophrenic angle. Mild increased markings at the right lung base. Sternal cerclage wires are present from a prior sternotomy. Prior mitral valve replacement. Normal mediastinum and elizabeth. Normal visualized pulmonary arteries. There is atherosclerotic calcification of the aortic arch with tortuosity. Normal visualized thoracic spine. Normal visualized ribs, clavicles, and shoulders. There is no demonstrated abnormality of the visualized soft tissue structures of the upper abdomen. RAD/Chest 1 View (Portable) IMPRESSION: Patchy left lower lobe infiltrate with blunting of the left costophrenic angle. Increased markings at the right lung base suggestive of atelectasis and/or early infiltrate as well. Electronically Signed: Isidro Lopez MD at 14:37 EDT ,
[2023-08-24 10:00] VITALS: PULSE 94; O2SAT 97; BMI 24.7
[2023-08-24] MEDS: Chlorhexidine 480 ML 15 ML PO ×2 (10:05→22:55)
[2023-08-24] MEDS: 0.45% Normal Saline 1,000 ML 75 ML IV (10:58)
[2023-08-24] MEDS: Vancomycin HCl 750 MG in 0.9% Normal Saline (250mL Bag) 250 ML 250 MG IV (12:06)
[2023-08-24] MEDS: Furosemide 80 MG Tablet GT (12:07)
[2023-08-24 12:47] LABS: Bedside Glucose 202 mg/dL (74-106)
--- NOTE | 2023-08-24 15:11 | CHAPLAIN ---
Type of Pastoral Visit _x__ Initial Visit ___ Follow-up Visit ___ On-call Visit ___ General Patient Visit ___ Spiritual Assessment ___ Family Conference ___ Bereavement ___ Rapid Response ___ Code Blue ___ Other (describe below) Pastoral Care Referral From _x__ Patient ___ Family ___ Nurse ___ Physician ___ Food And Beverage Manager ___ Toggle Press Operator ___ Other (describe below) Sacrament/Intervention ___ Active listening ___ Anointing ___ Orthodox ___ Bereavement ___ Communion ___ Liane exploration ___ ___ Life review ___ Prayer ___ Reconciliation ___ Sacrament of Sick _x__ Supportive presence ___ Wedding ___ Other (describe below) Pastoral Comments patient is easily awakened when his name is spoken; however pt has much difficultly staying awake and keeps his eyes closed most of the time; pt will answer some of the questions but it is not clear how much of conversation he is grasping; a baseball game is on tv and pt is asked about his enjoyment of baseball; pt states that he likes sports; pt does not engage in conversation and thus the visit ended;
[2023-08-24 15:29] VITALS: BMI 24.7
--- NOTE | 2023-08-24 16:09 | NURSING ---
Called [facility] to verify suture removal. No answer and Nurse's line had no Voice Mail.
[2023-08-24 18:17] LABS: Bedside Glucose 148 mg/dL (74-106)
[2023-08-24] MEDS: Mirtazapine 15 MG Tablet PO (21:46)
[2023-08-24] MEDS: Ezetimibe 10 MG Tablet GT (21:46)
[2023-08-24] MEDS: Atorvastatin Calcium 80 MG Tablet GT (21:46)
[2023-08-24] MEDS: Arthritis Pain Compound 60 CLICK TUBE TOPICAL (21:51)
[2023-08-24] MEDS: Acetaminophen 650 MG/20 ML UDC GT (21:56)
[2023-08-24 22:00] VITALS: BP 115/64; PULSE 91; RESP 20; TEMP 37; O2SAT 97
[2023-08-25] MEDS: Insulin Lispro 100 UNIT/ML INSULN.PEN SC ×5 (00:29→23:06)
[2023-08-25 00:41] LABS: Bedside Glucose 165 mg/dL (74-106)
[2023-08-25 03:30] VITALS: BMI 24.7
[2023-08-25] MEDS: Jevity 1.5 1,000 ML 55 ML GT (05:10)
[2023-08-25] MEDS: Piperacil/Tazobactam 3.375 GM in 0.9% Normal Saline (50mL MB+) 50 ML IV ×3 (06:21→22:16)
[2023-08-25 06:41] LABS: Bedside Glucose 161 mg/dL (74-106)
[2023-08-25 07:13] VITALS: BP 111/54; PULSE 97; RESP 30; TEMP 36.4; O2SAT 99
[2023-08-25] MEDS: Chlorhexidine 480 ML 15 ML PO ×2 (09:17→20:15)
[2023-08-25] MEDS: QUEtiapine 25 MG Tablet GT ×2 (09:18→22:16)
[2023-08-25] MEDS: Enoxaparin 40 MG/0.4 ML Syringe SC (09:18)
[2023-08-25] MEDS: Juven (unflavored) Packet 1 PACKET GT ×2 (09:18→17:42)
[2023-08-25] MEDS: Metoclopramide 5 MG TABLET GT ×2 (09:18→22:16)
[2023-08-25] MEDS: Colchicine 0.6 MG TABLET GT (09:18)
[2023-08-25] MEDS: Potassium Chloride Oral Soln 20 MEQ/15 ML UDC 40 MEQ GT (09:18)
[2023-08-25] MEDS: Carvedilol 12.5 MG Tablet GT ×2 (09:18→20:16)
[2023-08-25] MEDS: 0.45% Normal Saline 1,000 ML 75 ML IV (09:18)
[2023-08-25] MEDS: Furosemide 80 MG Tablet GT (09:18)
[2023-08-25] MEDS: Aspirin 81 MG TAB.CHEW GT (09:19)
[2023-08-25] MEDS: Arthritis Pain Compound 60 CLICK TUBE TOPICAL ×2 (09:19→20:15)
[2023-08-25 09:51] VITALS: BMI 24.7
[2023-08-25 09:58] VITALS: O2SAT 94
[2023-08-25 12:09] LABS: Vancomycin, Random Level 15.2 ug/mL (0.0-15.0)
[2023-08-25 12:24] LABS: Bedside Glucose 170 mg/dL (74-106)
--- NOTE | 2023-08-25 12:40 | CASEMGMT ---
Social Work IDT met with patient and for Team meeting. Discussed patient's progress in PT/OT/ST/SN. Educated to Medicare approval of 23 days with DC 09/11. Broached topic of pt needing alternative DC plan. IDT recommending SNF for continued therapy and nursing care. Offered SNF list for . agreeable. Provided printed list of [facility] with quality and resource data via [employer] Guide. Educated to SNF Medicare benefit. SW requested to bring in advanced directives. stated pt does not have any documents and currently pt cannot complete any. SW will continue to follow for DC planning. ReTeam weekly. Ashia Waite, WATCH REPAIR TECHNICIAN COUNCILOR
--- NOTE | 2023-08-25 12:49 | PCM.RX.CS ---
Consult Antibiotic Management Pharmacy has been consulted to manage selected antiobiotic: Vancomycin Type of Intervention Type of Consult: Follow-up Suspected Infection Suspected Infection: Other Prior Doses of Antibiotics Prior Doses of Antibiotics Received/Current Regimen: 08/23/23 @ 1217 08/24/23 @ 1206 Labs Labs: Sodium 146 mmol/L (136-145) H 08/24/23 05:09 Potassium 3.9 mmol/L (3.5-5.1) 08/24/23 05:09 Chloride 117 mmol/L (98-107) H 08/24/23 05:09 Carbon Dioxide 24.0 mmol/L (21.0-32.0) 08/24/23 05:09 Anion Gap 5 (5-15) 08/24/23 05:09 BUN 42 mg/dL (7-18) H 08/24/23 05:09 Creatinine 0.97 mg/dL (0.70-1.30) 08/24/23 05:09 Est GFR (MDRD) Af Amer 96 mL/min (>60) 08/24/23 05:09 Est GFR (MDRD) Non-Af 79 mL/min (>60) 08/24/23 05:09 BUN/Creatinine Ratio 43.3 RATIO (10-20) H 08/24/23 05:09 Glucose 173 mg/dL (74-106) H 08/24/23 05:09 Vancomycin Trough 13.9 ug/mL (5.0-15.0) 08/23/23 11:18 Random Vancomycin 15.2 ug/mL (0.0-15.0) H 08/25/23 11:30 Dosing Weight Weight used for dosin kg Estimated Creatinine Clearance Estimated Creatinine Clearance: 59 Pharmacy Plan for Drug Dosing Pharmacy Plan for Drug Dosing: Vancomycin 750mg daily Pharmacy Service will continue to monitor and adjust dosing as required. Follow-Up Labs Follow-Up Labs: Trough: Vancomycin Date/Time Labs Ordered Labs to be done on [date and time ordered]: 08/27/23 @ 1139
[2023-08-25] MEDS: Vancomycin HCl 750 MG in 0.9% Normal Saline (250mL Bag) 250 ML 250 MG IV (13:04)
[2023-08-25 13:20] VITALS: BMI 24.7
[2023-08-25 17:57] LABS: Bedside Glucose 152 mg/dL (74-106)
[2023-08-25 19:39] VITALS: BP 111/55; PULSE 86; RESP 17; TEMP 36.4; O2SAT 99
[2023-08-25] MEDS: MorphINE SOLN 10 MG/0.5 ML PO.SYRINGE 5 MG SL (19:51)
[2023-08-25] MEDS: Mirtazapine 15 MG Tablet PO (20:16)
[2023-08-25] MEDS: Ezetimibe 10 MG Tablet GT (20:17)
[2023-08-25] MEDS: Atorvastatin Calcium 80 MG Tablet GT (20:17)
[2023-08-25 23:21] LABS: Bedside Glucose 158 mg/dL (74-106)
--- NOTE | 2023-08-25 23:22 | NURSING ---
Residual checked, pt c/o stomach hurts. Residual 240ml, tube feeding stopped for 1 hour per order. Will recheck in 1 hour.
[2023-08-26] MEDS: MorphINE SOLN 10 MG/0.5 ML PO.SYRINGE 5 MG SL (00:36)
--- NOTE | 2023-08-26 00:46 | NURSING ---
Residual checked after tube feed on hold x1 hour. Residual 180ml. Tube feed remains on hold, will recheck again in 1 hour.HOB remains up at 30 degrees.
--- NOTE | 2023-08-26 01:15 | NURSING ---
Respiratory therapy called to assess pt and trach site, pt coughing at times and pointing to throat, able to hear air through trach site. RT assessed at bedside, dressing to trach site changed, no distress noted, able to cough up small amount of sputum and suctioned with Yankauer. HOB remains up 30 degrees.
--- NOTE | 2023-08-26 02:15 | NURSING ---
Residual at 120ml. Pt c/o feeling sick, and states his stomach hurts. Tube feed remains on hold, will recheck in am.
[2023-08-26 06:06] LABS: Hemoglobin 8.8 g/dL (13.0-16.5)
[2023-08-26] MEDS: Piperacil/Tazobactam 3.375 GM in 0.9% Normal Saline (50mL MB+) 50 ML IV ×3 (06:30→22:40)
[2023-08-26 06:34] VITALS: BMI 25.9
[2023-08-26] MEDS: Jevity 1.5 1,000 ML 55 ML GT (06:40)
[2023-08-26 06:59] LABS: Anion Gap 5 (5-15); BUN 42 mg/dL (7-18); BUN/Creat Ratio 41.6 RATIO (10-20); Calcium,Total 9.2 mg/dL (8.5-10.1); Chloride 109 mmol/L (98-107); Creatinine, Serum 1.01 mg/dL (0.70-1.30); EST Glomerular Filtration Rate 75 mL/min (>60); Est Glom Filt Rate - Afr Amer 91 mL/min (>60); Estimated Creatinine Clearance 56.44 ml/min; Glucose 160 mg/dL (74-106); Magnesium 2.2 mg/dL (1.6-2.6); Potassium 4.4 mmol/L (3.5-5.1); Sodium Level 138 mmol/L (136-145); Thyroid Stim Hormone (TSH) 3.87 uIU/mL (0.358-3.74)
[2023-08-26 07:24] LABS: Bedside Glucose 147 mg/dL (74-106)
[2023-08-26 07:59] VITALS: BP 120/74; PULSE 99; RESP 18; TEMP 36.7; O2SAT 98
[2023-08-26 08:16] VITALS: O2SAT 96
[2023-08-26] MEDS: Metoclopramide 5 MG TABLET GT ×3 (09:46→21:56)
[2023-08-26] MEDS: Colchicine 0.6 MG TABLET GT (09:46)
[2023-08-26] MEDS: Juven (unflavored) Packet 1 PACKET GT ×2 (09:46→17:55)
[2023-08-26] MEDS: Furosemide 80 MG Tablet GT (09:46)
[2023-08-26] MEDS: Enoxaparin 40 MG/0.4 ML Syringe SC (09:46)
[2023-08-26] MEDS: QUEtiapine 25 MG Tablet GT ×2 (09:46→21:54)
[2023-08-26] MEDS: Potassium Chloride Oral Soln 20 MEQ/15 ML UDC 40 MEQ GT (09:46)
[2023-08-26] MEDS: Aspirin 81 MG TAB.CHEW GT (09:46)
[2023-08-26] MEDS: Carvedilol 12.5 MG Tablet GT ×2 (09:46→21:54)
[2023-08-26] MEDS: Arthritis Pain Compound 60 CLICK TUBE TOPICAL ×2 (09:47→21:55)
[2023-08-26] MEDS: Chlorhexidine 480 ML 15 ML PO ×2 (09:57→21:55)
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
[2023-08-26 11:02] VITALS: BMI 25.0
[2023-08-26] MEDS: Vancomycin HCl 750 MG in 0.9% Normal Saline (250mL Bag) 250 ML 250 MG IV (12:00)
[2023-08-26] MEDS: Insulin Lispro 100 UNIT/ML INSULN.PEN SC (14:00)
[2023-08-26] MEDS: Jevity 1.5. 1,000 ML Bottle 265 ML GT ×3 (14:03→21:57)
[2023-08-26 14:30] VITALS: BMI 25.0
[2023-08-26 15:14] LABS: Bedside Glucose 156 mg/dL (74-106)
[2023-08-26 18:28] LABS: Bedside Glucose 147 mg/dL (74-106)
[2023-08-26 19:53] VITALS: BP 130/58; PULSE 96; RESP 20; TEMP 36.2; O2SAT 99
[2023-08-26] MEDS: Mirtazapine 15 MG Tablet PO (21:00)
[2023-08-26] MEDS: guaiFENesin 10 ML UDC (200MG/10ML) GT (21:53)
[2023-08-26] MEDS: Acetaminophen 650 MG/20 ML UDC GT (21:54)
[2023-08-26] MEDS: Ezetimibe 10 MG Tablet GT (21:54)
[2023-08-26] MEDS: Atorvastatin Calcium 80 MG Tablet GT (21:54)
[2023-08-26 21:55] LABS: Bedside Glucose 145 mg/dL (74-106)
[2023-08-26] MEDS: Loperamide (Oral Liquid) 1 MG/7.5 ML ML 4 MG GT (22:38)
[2023-08-27] MEDS: 0.9% Normal Saline (500mL Bag) 500 ML 15 ML IV (04:05)
[2023-08-27] MEDS: Piperacil/Tazobactam 3.375 GM in 0.9% Normal Saline (50mL MB+) 50 ML IV ×3 (05:00→22:16)
[2023-08-27 05:29] LABS: Bedside Glucose 142 mg/dL (74-106)
[2023-08-27 06:00] VITALS: BMI 24.9
[2023-08-27] MEDS: Metoclopramide 5 MG TABLET GT ×3 (06:13→22:13)
[2023-08-27] MEDS: QUEtiapine 25 MG Tablet 12.5 MG GT (06:13)
[2023-08-27] MEDS: Jevity 1.5. 1,000 ML Bottle 265 ML GT ×5 (06:25→22:20)
[2023-08-27 07:14] VITALS: O2SAT 99
[2023-08-27 07:15] VITALS: BP 132/72; PULSE 74; RESP 16; TEMP 36.7; O2SAT 93
[2023-08-27] MEDS: Enoxaparin 40 MG/0.4 ML Syringe SC (08:40)
[2023-08-27] MEDS: Arthritis Pain Compound 60 CLICK TUBE TOPICAL ×2 (08:40→22:17)
[2023-08-27] MEDS: Potassium Chloride Oral Soln 20 MEQ/15 ML UDC 40 MEQ GT (08:41)
[2023-08-27] MEDS: Carvedilol 12.5 MG Tablet GT ×2 (08:41→22:13)
[2023-08-27] MEDS: Colchicine 0.6 MG TABLET GT (08:41)
[2023-08-27] MEDS: Aspirin 81 MG TAB.CHEW GT (08:41)
[2023-08-27] MEDS: guaiFENesin 10 ML UDC (200MG/10ML) GT ×2 (08:41→22:16)
[2023-08-27] MEDS: Juven (unflavored) Packet 1 PACKET GT (08:41)
[2023-08-27 09:54] VITALS: BMI 24.9
[2023-08-27] MEDS: Insulin Lispro 100 UNIT/ML INSULN.PEN SC ×4 (10:04→22:31)
[2023-08-27 10:44] LABS: Bedside Glucose 162 mg/dL (74-106)
[2023-08-27] MEDS: Chlorhexidine 480 ML 15 ML PO ×2 (10:49→22:15)
--- NOTE | 2023-08-27 10:50 | NURSING ---
Residual 120ml, rechecked an hour later residual 70ml.
[2023-08-27 13:12] LABS: Vancomycin, Trough Level 15.2 ug/mL (5.0-15.0)
[2023-08-27] MEDS: Loperamide (Oral Liquid) 1 MG/7.5 ML ML 4 MG GT (13:35)
[2023-08-27] MEDS: Vancomycin Trough/Random Due 1 LAB MC ×2 (13:35→13:36)
--- NOTE | 2023-08-27 14:31 | PCM.RX.CS ---
Consult Antibiotic Management Pharmacy has been consulted to manage selected antiobiotic: Vancomycin Type of Intervention Type of Consult: Follow-up Suspected Infection Suspected Infection: Other Prior Doses of Antibiotics Prior Doses of Antibiotics Received/Current Regimen: 08/24 @ 1206 08/25 @ 1304 08/26 @1200 Labs Labs: Sodium 138 mmol/L (136-145) 08/26/23 05:12 Potassium 4.4 mmol/L (3.5-5.1) 08/26/23 05:12 Chloride 109 mmol/L (98-107) H 08/26/23 05:12 Carbon Dioxide 24.0 mmol/L (21.0-32.0) 08/26/23 05:12 Anion Gap 5 (5-15) 08/26/23 05:12 BUN 42 mg/dL (7-18) H 08/26/23 05:12 Creatinine 1.01 mg/dL (0.70-1.30) 08/26/23 05:12 Est GFR (MDRD) Af Amer 91 mL/min (>60) 08/26/23 05:12 Est GFR (MDRD) Non-Af 75 mL/min (>60) 08/26/23 05:12 BUN/Creatinine Ratio 41.6 RATIO (10-20) H 08/26/23 05:12 Glucose 160 mg/dL (74-106) H 08/26/23 05:12 Vancomycin Trough 15.2 ug/mL (5.0-15.0) H 08/27/23 12:05 Random Vancomycin 15.2 ug/mL (0.0-15.0) H 08/25/23 11:30 Dosing Weight Weight used for dosin kg Pharmacy Plan for Drug Dosing Pharmacy Plan for Drug Dosing: Continue 750mg Vancomycin every 24 hours through 09/02 Pharmacy Service will continue to monitor and adjust dosing as required. Follow-Up Labs Follow-Up Labs: Trough: Vancomycin Date/Time Labs Ordered Labs to be done on [date and time ordered]: 08/29/23 @ 1400
[2023-08-27 15:07] LABS: Bedside Glucose 161 mg/dL (74-106)
[2023-08-27] MEDS: MorphINE SOLN 10 MG/0.5 ML PO.SYRINGE 5 MG SL (15:48)
[2023-08-27 18:29] LABS: Bedside Glucose 175 mg/dL (74-106)
[2023-08-27] MEDS: Vancomycin HCl 750 MG in 0.9% Normal Saline (250mL Bag) 250 ML 250 MG IV (18:33)
[2023-08-27 20:33] VITALS: BP 116/60; PULSE 86; RESP 18; TEMP 36.6; O2SAT 98
[2023-08-27 20:34] VITALS: BMI 24.9
[2023-08-27] MEDS: Ezetimibe 10 MG Tablet GT (22:14)
[2023-08-27] MEDS: QUEtiapine 25 MG Tablet GT (22:14)
[2023-08-27] MEDS: Atorvastatin Calcium 80 MG Tablet GT (22:14)
[2023-08-27] MEDS: Mirtazapine 15 MG Tablet PO (22:14)
[2023-08-27] MEDS: Nystatin Powder 15gm Bottle 1 APPLIC TOPICAL (22:15)
[2023-08-27 23:12] LABS: Bedside Glucose 170 mg/dL (74-106)
[2023-08-28 06:00] VITALS: BMI 24.5
[2023-08-28] MEDS: Jevity 1.5. 1,000 ML Bottle 265 ML GT ×5 (06:49→22:07)
[2023-08-28] MEDS: Piperacil/Tazobactam 3.375 GM in 0.9% Normal Saline (50mL MB+) 50 ML IV ×3 (06:49→22:03)
[2023-08-28] MEDS: Metoclopramide 5 MG TABLET GT ×3 (06:51→21:55)
[2023-08-28] MEDS: QUEtiapine 25 MG Tablet 12.5 MG GT (06:51)
[2023-08-28 07:27] LABS: Bedside Glucose 140 mg/dL (74-106)
[2023-08-28 07:55] VITALS: BP 128/87; PULSE 75; RESP 16; TEMP 36.5; O2SAT 96
[2023-08-28 08:51] VITALS: BMI 24.5
[2023-08-28] MEDS: Insulin Lispro 100 UNIT/ML INSULN.PEN SC ×4 (09:47→22:08)
[2023-08-28] MEDS: Carvedilol 12.5 MG Tablet GT ×2 (09:49→21:57)
[2023-08-28] MEDS: Arthritis Pain Compound 60 CLICK TUBE TOPICAL ×2 (09:49→21:59)
[2023-08-28] MEDS: Potassium Chloride Oral Soln 20 MEQ/15 ML UDC 40 MEQ GT (09:49)
[2023-08-28] MEDS: Colchicine 0.6 MG TABLET GT (09:49)
[2023-08-28] MEDS: Aspirin 81 MG TAB.CHEW GT (09:49)
[2023-08-28] MEDS: Loperamide (Oral Liquid) 1 MG/7.5 ML ML 4 MG GT (09:51)
[2023-08-28] MEDS: guaiFENesin 10 ML UDC (200MG/10ML) GT ×2 (09:51→21:55)
[2023-08-28] MEDS: Chlorhexidine 480 ML 15 ML PO ×2 (09:51→22:08)
[2023-08-28] MEDS: Enoxaparin 40 MG/0.4 ML Syringe SC (09:51)
[2023-08-28] MEDS: Furosemide 80 MG Tablet GT (09:51)
[2023-08-28] MEDS: Nystatin Powder 15gm Bottle 1 APPLIC TOPICAL ×2 (10:27→20:05)
[2023-08-28 10:43] LABS: Bedside Glucose 210 mg/dL (74-106)
[2023-08-28 11:23] VITALS: O2SAT 98
[2023-08-28 15:48] LABS: Bedside Glucose 199 mg/dL (74-106)
[2023-08-28 18:21] LABS: Bedside Glucose 185 mg/dL (74-106)
[2023-08-28] MEDS: Vancomycin HCl 750 MG in 0.9% Normal Saline (250mL Bag) 250 ML 250 MG IV (18:33)
[2023-08-28 19:28] VITALS: BP 122/71; PULSE 85; RESP 22; TEMP 36.2; O2SAT 98
[2023-08-28] MEDS: MorphINE SOLN 10 MG/0.5 ML PO.SYRINGE 5 MG SL (19:32)
[2023-08-28] MEDS: Mirtazapine 15 MG Tablet PO (21:55)
[2023-08-28] MEDS: Atorvastatin Calcium 80 MG Tablet GT (21:56)
[2023-08-28] MEDS: Ezetimibe 10 MG Tablet GT (21:57)
[2023-08-28] MEDS: QUEtiapine 25 MG Tablet GT (22:10)
[2023-08-28 22:17] LABS: Bedside Glucose 176 mg/dL (74-106)
[2023-08-28] MEDS: Acetaminophen 650 MG/20 ML UDC GT (22:20)
[2023-08-29] MEDS: Piperacil/Tazobactam 3.375 GM in 0.9% Normal Saline (50mL MB+) 50 ML IV ×3 (05:15→22:18)
[2023-08-29] MEDS: Metoclopramide 5 MG TABLET GT ×3 (05:35→21:45)
[2023-08-29] MEDS: QUEtiapine 25 MG Tablet 12.5 MG GT (05:35)
[2023-08-29] MEDS: Insulin Lispro 100 UNIT/ML INSULN.PEN SC ×5 (05:36→22:04)
[2023-08-29] MEDS: Jevity 1.5. 1,000 ML Bottle 265 ML GT ×5 (05:36→21:52)
[2023-08-29 05:52] VITALS: BMI 24.7
[2023-08-29 06:00] LABS: Hematocrit 31.7 % (40-54); Hemoglobin 9.4 g/dL (13.0-16.5); Mean Corp Hgb Conc 29.7 g/dL (32-36); Mean Corpuscular Hgb 27.8 pg (27.0-32.0); Mean Corpuscular Volume 93.8 fL (80-94); Mean Platelet Vol. 10.4 fl (6.2-12.0); Platelet Count 198 K/mm3 (150-450); RBC Distribution Width CV 17.5 % (11.6-14.6); RBC Distribution Width SD 60.4 fl (35.1-43.9); Red Blood Count 3.38 M/mm3 (4.6-6.2); White Blood Count 6.7 K/mm3 (4.4-11.0)
[2023-08-29 06:15] LABS: Bedside Glucose 157 mg/dL (74-106)
[2023-08-29 06:48] LABS: Anion Gap 5 (5-15); BUN 31 mg/dL (7-18); Calcium,Total 9.4 mg/dL (8.5-10.1); Chloride 110 mmol/L (98-107); Creatinine, Serum 1.15 mg/dL (0.70-1.30); EST Glomerular Filtration Rate 65 mL/min (>60); Est Glom Filt Rate - Afr Amer 79 mL/min (>60); Estimated Creatinine Clearance 49.57 ml/min; Glucose 179 mg/dL (74-106); Magnesium 2.4 mg/dL (1.6-2.6); Phosphorus 2.4 mg/dL (2.5-4.9); Potassium 4.2 mmol/L (3.5-5.1); Sodium Level 141 mmol/L (136-145)
[2023-08-29 07:15] VITALS: BP 112/50; PULSE 89; RESP 22; TEMP 36.3; O2SAT 94
[2023-08-29] MEDS: Enoxaparin 40 MG/0.4 ML Syringe SC (07:51)
[2023-08-29] MEDS: Aspirin 81 MG TAB.CHEW GT (07:51)
[2023-08-29] MEDS: Colchicine 0.6 MG TABLET GT (07:51)
[2023-08-29] MEDS: Arthritis Pain Compound 60 CLICK TUBE TOPICAL ×2 (07:51→21:41)
[2023-08-29] MEDS: Carvedilol 12.5 MG Tablet GT ×2 (07:51→21:46)
[2023-08-29 08:01] VITALS: O2SAT 99
[2023-08-29] MEDS: guaiFENesin 10 ML UDC (200MG/10ML) GT ×2 (09:50→21:46)
[2023-08-29] MEDS: Acetaminophen 650 MG/20 ML UDC GT ×2 (09:50→18:15)
[2023-08-29] MEDS: Potassium Chloride Oral Soln 20 MEQ/15 ML UDC 40 MEQ GT (09:50)
[2023-08-29] MEDS: Nystatin Powder 15gm Bottle 1 APPLIC TOPICAL ×2 (10:07→21:42)
[2023-08-29] MEDS: Chlorhexidine 480 ML 15 ML PO ×2 (10:07→21:46)
[2023-08-29 10:36] LABS: Bedside Glucose 189 mg/dL (74-106)
[2023-08-29 12:40] VITALS: O2SAT 95
[2023-08-29 13:10] VITALS: BMI 24.7
[2023-08-29] MEDS: MorphINE SOLN 10 MG/0.5 ML PO.SYRINGE 5 MG SL ×2 (13:47→23:57)
--- NOTE | 2023-08-29 13:55 | CASEMGMT ---
Addendum entered by Ashia Waite 08/30/23 15:25: [facility] cannot accept. [facility]. [facility] is waiting for DON to review - which is family's first preference. Will continue to follow. Original Note: Social Work IDT discussed patient's progress and ability to perform in RU another 2 weeks. IDT agrees for pt to transfer to SNF prior to DC date as RU is too intense for pt. SW phoned to follow up on SNF choices from previous Team meeting. requests referrals to [facility], [facility] and [facility]. SW then discussed above recommendations. expressed understanding amd agreeable to transfer once there is an accepting facility. SW placed referrals to SNF via [facility]. Will continue to follow. GORDON BarryW
[2023-08-29] MEDS: Na Biphos/Potassium Phosphate PACKET 1 PACKET GT ×2 (14:19→21:46)
[2023-08-29 14:30] LABS: Bedside Glucose 195 mg/dL (74-106)
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
[2023-08-29 18:30] LABS: Bedside Glucose 157 mg/dL (74-106)
[2023-08-29 18:57] LABS: Vancomycin, Trough Level 16.4 ug/mL (5.0-15.0)
--- NOTE | 2023-08-29 19:29 | PCM.RX.CS ---
Consult Antibiotic Management Pharmacy has been consulted to manage selected antiobiotic: Vancomycin Type of Intervention Type of Consult: Follow-up Prior Doses of Antibiotics Prior Doses of Antibiotics Received/Current Regimen: Currently on 750mg iv q24h. Labs Labs: Sodium 141 mmol/L (136-145) 08/29/23 05:12 Potassium 4.2 mmol/L (3.5-5.1) 08/29/23 05:12 Chloride 110 mmol/L (98-107) H 08/29/23 05:12 Carbon Dioxide 26.0 mmol/L (21.0-32.0) 08/29/23 05:12 Anion Gap 5 (5-15) 08/29/23 05:12 BUN 31 mg/dL (7-18) H 08/29/23 05:12 Creatinine 1.15 mg/dL (0.70-1.30) 08/29/23 05:12 Est GFR (MDRD) Af Amer 79 mL/min (>60) 08/29/23 05:12 Est GFR (MDRD) Non-Af 65 mL/min (>60) 08/29/23 05:12 BUN/Creatinine Ratio 27.0 RATIO (10-20) H 08/29/23 05:12 Glucose 179 mg/dL (74-106) H 08/29/23 05:12 Vancomycin Trough 16.4 ug/mL (5.0-15.0) H 08/29/23 18:26 Random Vancomycin 15.2 ug/mL (0.0-15.0) H 08/25/23 11:30 Dosing Weight Weight used for dosin.9 kg Estimated Creatinine Clearance Estimated Creatinine Clearance: 50ml/min Goal Trough Goal Trough: 15-20 mcg/mL Pharmacy Plan for Drug Dosing Pharmacy Plan for Drug Dosing: Trough today came back at 16.4 and in desired range of 15-20mcg/ml. To continue same dose with a new trough before another 3rd dose. Pharmacy Service will continue to monitor and adjust dosing as required. Follow-Up Labs Follow-Up Labs: Trough: Vancomycin ([id number])
[2023-08-29 19:36] VITALS: BP 101/56; PULSE 72; RESP 17; TEMP 36.6; O2SAT 93
[2023-08-29] MEDS: Vancomycin HCl 750 MG in 0.9% Normal Saline (250mL Bag) 250 ML 250 MG IV (19:37)
[2023-08-29 21:37] VITALS: BMI 24.7
[2023-08-29] MEDS: Menthol/Lanolin/Calamine/Znox 113 GM Tube 1 APPLIC TOPICAL (21:41)
[2023-08-29] MEDS: Mirtazapine 15 MG Tablet PO (21:44)
[2023-08-29] MEDS: Atorvastatin Calcium 80 MG Tablet GT (21:46)
[2023-08-29] MEDS: QUEtiapine 25 MG Tablet GT (21:46)
[2023-08-29] MEDS: Ezetimibe 10 MG Tablet GT (21:46)
[2023-08-29 22:50] LABS: Bedside Glucose 161 mg/dL (74-106)
[2023-08-30] MEDS: Acetaminophen 650 MG/20 ML UDC GT ×2 (04:02→21:02)
[2023-08-30] MEDS: MorphINE SOLN 10 MG/0.5 ML PO.SYRINGE 5 MG SL ×2 (04:04→14:03)
[2023-08-30] MEDS: Menthol/Lanolin/Calamine/Znox 113 GM Tube 1 APPLIC TOPICAL ×2 (04:16→22:29)
[2023-08-30] MEDS: Na Biphos/Potassium Phosphate PACKET 1 PACKET GT ×3 (04:21→21:02)
[2023-08-30] MEDS: QUEtiapine 25 MG Tablet 12.5 MG GT (04:21)
[2023-08-30] MEDS: Metoclopramide 5 MG TABLET GT ×3 (04:21→21:02)
[2023-08-30] MEDS: Piperacil/Tazobactam 3.375 GM in 0.9% Normal Saline (50mL MB+) 50 ML IV ×3 (06:16→21:01)
[2023-08-30] MEDS: Jevity 1.5. 1,000 ML Bottle 265 ML GT ×5 (06:21→21:11)
[2023-08-30 06:27] VITALS: BMI 24.8
[2023-08-30 06:47] LABS: Bedside Glucose 145 mg/dL (74-106)
[2023-08-30 09:04] VITALS: BP 135/67; PULSE 66; RESP 16; TEMP 36.3; O2SAT 97
[2023-08-30] MEDS: Arthritis Pain Compound 60 CLICK TUBE TOPICAL ×2 (09:51→21:02)
[2023-08-30] MEDS: Furosemide 80 MG Tablet GT (10:00)
[2023-08-30] MEDS: Enoxaparin 40 MG/0.4 ML Syringe SC (10:00)
[2023-08-30] MEDS: Aspirin 81 MG TAB.CHEW GT (10:00)
[2023-08-30] MEDS: guaiFENesin 10 ML UDC (200MG/10ML) GT ×2 (10:00→21:01)
[2023-08-30] MEDS: Colchicine 0.6 MG TABLET GT (10:00)
[2023-08-30] MEDS: Carvedilol 12.5 MG Tablet GT ×2 (10:00→21:02)
[2023-08-30] MEDS: Potassium Chloride Oral Soln 20 MEQ/15 ML UDC 40 MEQ GT (10:00)
[2023-08-30] MEDS: Chlorhexidine 480 ML 15 ML PO ×2 (10:01→21:06)
[2023-08-30] MEDS: Insulin Lispro 100 UNIT/ML INSULN.PEN SC ×3 (10:03→21:11)
[2023-08-30] MEDS: Loperamide (Oral Liquid) 1 MG/7.5 ML ML 4 MG GT ×2 (10:33→18:29)
[2023-08-30] MEDS: Nystatin Powder 15gm Bottle 1 APPLIC TOPICAL ×2 (10:39→22:29)
[2023-08-30 10:53] LABS: Bedside Glucose 157 mg/dL (74-106)
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
--- NOTE | 2023-08-30 13:08 | NURSING ---
left message at Dr Jimenez office in regards to suture removal
[2023-08-30] MEDS: 0.9% Saline Lock 10 ML Syringe IV (14:15)
[2023-08-30 14:38] LABS: Bedside Glucose 193 mg/dL (74-106)
[2023-08-30 16:58] VITALS: BMI 24.8
[2023-08-30] MEDS: Vancomycin HCl 750 MG in 0.9% Normal Saline (250mL Bag) 250 ML 250 MG IV (18:31)
[2023-08-30 19:00] LABS: Bedside Glucose 141 mg/dL (74-106)
[2023-08-30] MEDS: Ezetimibe 10 MG Tablet GT (21:01)
[2023-08-30] MEDS: Atorvastatin Calcium 80 MG Tablet GT (21:02)
[2023-08-30] MEDS: QUEtiapine 25 MG Tablet GT (21:02)
[2023-08-30] MEDS: Mirtazapine 15 MG Tablet PO (21:02)
[2023-08-30 21:10] VITALS: BP 119/75; PULSE 59; RESP 20; TEMP 36.6; O2SAT 100
[2023-08-30] MEDS: Insulin Glargine-YFGN 100 UNIT/ML Pen 6 UNIT SC (21:10)
[2023-08-30 21:45] LABS: Bedside Glucose 197 mg/dL (74-106)
[2023-08-31 05:00] VITALS: BMI 24.8
[2023-08-31 06:00] VITALS: BMI 24.8
[2023-08-31] MEDS: Na Biphos/Potassium Phosphate PACKET 1 PACKET GT ×3 (06:02→19:42)
[2023-08-31] MEDS: QUEtiapine 25 MG Tablet GT ×4 (06:02→20:40)
[2023-08-31] MEDS: Metoclopramide 5 MG TABLET GT ×3 (06:03→19:43)
[2023-08-31] MEDS: Jevity 1.5. 1,000 ML Bottle 265 ML GT ×5 (06:04→21:50)
[2023-08-31] MEDS: Piperacil/Tazobactam 3.375 GM in 0.9% Normal Saline (50mL MB+) 50 ML IV ×3 (06:05→21:33)
[2023-08-31 06:47] LABS: Bedside Glucose 134 mg/dL (74-106)
[2023-08-31 07:40] VITALS: BP 122/73; PULSE 88; RESP 18; TEMP 36.3; O2SAT 94
[2023-08-31] MEDS: MorphINE SOLN 10 MG/0.5 ML PO.SYRINGE 5 MG SL ×2 (08:56→19:35)
[2023-08-31] MEDS: Loperamide (Oral Liquid) 1 MG/7.5 ML ML 4 MG GT ×2 (09:02→14:35)
[2023-08-31] MEDS: Menthol/Lanolin/Calamine/Znox 113 GM Tube 1 APPLIC TOPICAL ×2 (09:09→19:41)
[2023-08-31 09:35] VITALS: O2SAT 99
[2023-08-31] MEDS: Colchicine 0.6 MG TABLET GT (10:03)
[2023-08-31] MEDS: Aspirin 81 MG TAB.CHEW GT (10:03)
[2023-08-31] MEDS: guaiFENesin 10 ML UDC (200MG/10ML) GT ×2 (10:03→19:44)
[2023-08-31] MEDS: Enoxaparin 40 MG/0.4 ML Syringe SC (10:03)
[2023-08-31] MEDS: Carvedilol 12.5 MG Tablet GT ×2 (10:03→19:41)
[2023-08-31] MEDS: Potassium Chloride Oral Soln 20 MEQ/15 ML UDC 40 MEQ GT (10:03)
[2023-08-31] MEDS: Chlorhexidine 480 ML 15 ML PO ×2 (10:04→21:33)
[2023-08-31] MEDS: Insulin Lispro 100 UNIT/ML INSULN.PEN SC ×4 (10:08→22:02)
[2023-08-31] MEDS: Nystatin Powder 15gm Bottle 1 APPLIC TOPICAL ×2 (10:12→19:41)
[2023-08-31 10:50] LABS: Bedside Glucose 166 mg/dL (74-106)
[2023-08-31] MEDS: 0.9% Saline Lock 10 ML Syringe IV ×2 (14:19→20:03)
[2023-08-31 14:57] LABS: Bedside Glucose 168 mg/dL (74-106)
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
[2023-08-31 16:13] VITALS: BMI 24.8
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
[2023-08-31] MEDS: Vancomycin Trough/Random Due 1 LAB MC (18:40)
[2023-08-31 18:57] LABS: Bedside Glucose 172 mg/dL (74-106)
[2023-08-31 19:07] LABS: Vancomycin, Trough Level 16.4 ug/mL (5.0-15.0)
[2023-08-31 19:12] VITALS: BP 155/70; PULSE 99; RESP 18; TEMP 36.3; O2SAT 97
--- NOTE | 2023-08-31 19:31 | PCM.RX.CS ---
Consult Antibiotic Management Pharmacy has been consulted to manage selected antiobiotic: Vancomycin Type of Intervention Type of Consult: Follow-up Labs Labs: Sodium 141 mmol/L (136-145) 08/29/23 05:12 Potassium 4.2 mmol/L (3.5-5.1) 08/29/23 05:12 Chloride 110 mmol/L (98-107) H 08/29/23 05:12 Carbon Dioxide 26.0 mmol/L (21.0-32.0) 08/29/23 05:12 Anion Gap 5 (5-15) 08/29/23 05:12 BUN 31 mg/dL (7-18) H 08/29/23 05:12 Creatinine 1.15 mg/dL (0.70-1.30) 08/29/23 05:12 Est GFR (MDRD) Af Amer 79 mL/min (>60) 08/29/23 05:12 Est GFR (MDRD) Non-Af 65 mL/min (>60) 08/29/23 05:12 BUN/Creatinine Ratio 27.0 RATIO (10-20) H 08/29/23 05:12 Glucose 179 mg/dL (74-106) H 08/29/23 05:12 Vancomycin Trough 16.4 ug/mL (5.0-15.0) H 08/31/23 18:03 Random Vancomycin 15.2 ug/mL (0.0-15.0) H 08/25/23 11:30 Goal Trough Goal Trough: 15-20 mcg/mL Pharmacy Plan for Drug Dosing Pharmacy Plan for Drug Dosing: VANCOMYCIN LEVEL RECEIVED Current Vancomycin Dose: 750mg IV Q24hr Number of Doses Received: several (5 of current regimen) Vancomycin Level: 16.4 Hours Since Last Dose: 23.5hr Renal Function: 1.15 Renal Function Trend: stable Lab/Micro: N/A Vancomycin Plan/Comments: Patient had a trough drawn which resulted in a value of 16.4 (goal 15-20). Patient is within therapeutic goal. Will continue current dose. Patient is only to be on vancomycin thru 09/02/23. With this in mind, will not order another trough since patient is only to have 3 more doses of drug and has been stable for almost a week on the current dose. Pending Level: None, patient's vancomycin stop date is 09/02/23 Pharmacy Service will continue to monitor and adjust dosing as required.
[2023-08-31] MEDS: Mirtazapine 15 MG Tablet PO (19:39)
[2023-08-31] MEDS: Arthritis Pain Compound 60 CLICK TUBE TOPICAL (19:39)
[2023-08-31] MEDS: Atorvastatin Calcium 80 MG Tablet GT (19:41)
[2023-08-31] MEDS: Ezetimibe 10 MG Tablet GT (19:46)
[2023-08-31] MEDS: Vancomycin HCl 750 MG in 0.9% Normal Saline (250mL Bag) 250 ML 250 MG IV (20:04)
[2023-08-31 20:53] VITALS: PULSE 78; RESP 18; O2SAT 94
[2023-08-31] MEDS: Insulin Glargine-YFGN 100 UNIT/ML Pen 6 UNIT SC (22:03)
[2023-08-31 23:10] LABS: Bedside Glucose 156 mg/dL (74-106)
[2023-09-01] VITALS: BMI 24.8
[2023-09-01] MEDS: Loperamide (Oral Liquid) 1 MG/7.5 ML ML 4 MG GT ×2 (00:16→10:23)
[2023-09-01] MEDS: MorphINE SOLN 10 MG/0.5 ML PO.SYRINGE 5 MG SL ×3 (01:49→19:42)
[2023-09-01] MEDS: 0.9% Normal Saline (500mL Bag) 500 ML 15 ML IV (03:38)
[2023-09-01] MEDS: Na Biphos/Potassium Phosphate PACKET 1 PACKET GT ×3 (05:09→21:34)
[2023-09-01] MEDS: Metoclopramide 5 MG TABLET GT ×3 (05:10→21:35)
[2023-09-01] MEDS: QUEtiapine 25 MG Tablet GT ×3 (05:10→21:35)
[2023-09-01] MEDS: Menthol/Lanolin/Calamine/Znox 113 GM Tube 1 APPLIC TOPICAL ×2 (05:10→21:34)
[2023-09-01] MEDS: Jevity 1.5. 1,000 ML Bottle 265 ML GT ×5 (05:10→21:47)
[2023-09-01] MEDS: Piperacil/Tazobactam 3.375 GM in 0.9% Normal Saline (50mL MB+) 50 ML IV ×3 (05:13→21:59)
[2023-09-01 06:00] VITALS: BMI 25.1
[2023-09-01 06:01] LABS: Hematocrit 30.7 % (40-54); Hemoglobin 8.9 g/dL (13.0-16.5); Mean Corpuscular Hgb 27.4 pg (27.0-32.0); Mean Corpuscular Volume 94.5 fL (80-94); Mean Platelet Vol. 10.2 fl (6.2-12.0); Platelet Count 215 K/mm3 (150-450); RBC Distribution Width CV 17.5 % (11.6-14.6); RBC Distribution Width SD 61.1 fl (35.1-43.9); Red Blood Count 3.25 M/mm3 (4.6-6.2); White Blood Count 7.6 K/mm3 (4.4-11.0)
[2023-09-01 06:02] LABS: Bedside Glucose 138 mg/dL (74-106)
[2023-09-01 06:33] LABS: Anion Gap 5 (5-15); BUN 24 mg/dL (7-18); BUN/Creat Ratio 21.2 RATIO (10-20); Calcium,Total 8.5 mg/dL (8.5-10.1); Chloride 109 mmol/L (98-107); Creatinine, Serum 1.13 mg/dL (0.70-1.30); EST Glomerular Filtration Rate 66 mL/min (>60); Est Glom Filt Rate - Afr Amer 80 mL/min (>60); Estimated Creatinine Clearance 50.44 ml/min; Glucose 142 mg/dL (74-106); Potassium 4.7 mmol/L (3.5-5.1); Sodium Level 138 mmol/L (136-145)
[2023-09-01 07:31] VITALS: BP 109/73; PULSE 88; RESP 18; TEMP 36.7; O2SAT 97
[2023-09-01] MEDS: Enoxaparin 40 MG/0.4 ML Syringe SC (10:05)
[2023-09-01] MEDS: Insulin Lispro 100 UNIT/ML INSULN.PEN SC ×3 (10:05→17:58)
[2023-09-01] MEDS: Colchicine 0.6 MG TABLET GT (10:07)
[2023-09-01] MEDS: guaiFENesin 10 ML UDC (200MG/10ML) GT ×2 (10:07→21:35)
[2023-09-01] MEDS: Furosemide 80 MG Tablet GT (10:07)
[2023-09-01] MEDS: Aspirin 81 MG TAB.CHEW GT (10:07)
[2023-09-01] MEDS: Chlorhexidine 480 ML 15 ML PO ×2 (10:07→21:35)
[2023-09-01] MEDS: Nystatin Powder 15gm Bottle 1 APPLIC TOPICAL ×2 (10:07→21:36)
[2023-09-01] MEDS: Potassium Chloride Oral Soln 20 MEQ/15 ML UDC 40 MEQ GT (10:07)
[2023-09-01] MEDS: Carvedilol 12.5 MG Tablet GT ×2 (10:07→21:34)
[2023-09-01 10:52] LABS: Bedside Glucose 171 mg/dL (74-106)
[2023-09-01] MEDS: Arthritis Pain Compound 60 CLICK TUBE TOPICAL ×2 (13:55→21:34)
[2023-09-01] MEDS: 0.9% Saline Lock 10 ML Syringe IV (14:03)
[2023-09-01 14:38] LABS: Bedside Glucose 184 mg/dL (74-106)
[2023-09-01 15:04] VITALS: BMI 25.1
[2023-09-01] MEDS: Vancomycin HCl 750 MG in 0.9% Normal Saline (250mL Bag) 250 ML 250 MG IV (18:00)
[2023-09-01 18:28] LABS: Bedside Glucose 154 mg/dL (74-106)
[2023-09-01 19:57] VITALS: BP 106/91; PULSE 95; RESP 16; TEMP 36.6; O2SAT 95
[2023-09-01 20:32] VITALS: BMI 25.1
[2023-09-01] MEDS: Mirtazapine 15 MG Tablet PO (20:33)
[2023-09-01] MEDS: Atorvastatin Calcium 80 MG Tablet GT (21:34)
[2023-09-01] MEDS: Ezetimibe 10 MG Tablet GT (21:35)
[2023-09-01] MEDS: Acetaminophen 650 MG/20 ML UDC GT (21:38)
[2023-09-01] MEDS: Insulin Glargine-YFGN 100 UNIT/ML Pen 6 UNIT SC (21:44)
[2023-09-01 22:00] VITALS: PULSE 95; RESP 18; O2SAT 95
[2023-09-01 22:54] LABS: Bedside Glucose 104 mg/dL (74-106)
[2023-09-02] MEDS: Piperacil/Tazobactam 3.375 GM in 0.9% Normal Saline (50mL MB+) 50 ML IV (05:06)
[2023-09-02] MEDS: Metoclopramide 5 MG TABLET GT (05:12)
[2023-09-02] MEDS: Menthol/Lanolin/Calamine/Znox 113 GM Tube 1 APPLIC TOPICAL (05:12)
[2023-09-02] MEDS: Na Biphos/Potassium Phosphate PACKET 1 PACKET GT (05:12)
[2023-09-02] MEDS: QUEtiapine 25 MG Tablet GT (05:12)
[2023-09-02] MEDS: Jevity 1.5. 1,000 ML Bottle 265 ML GT ×2 (05:19→09:34)
[2023-09-02 05:50] LABS: Bedside Glucose 132 mg/dL (74-106)
[2023-09-02 05:55] LABS: Hematocrit 32.1 % (40-54); Hemoglobin 9.9 g/dL (13.0-16.5)
[2023-09-02 06:00] VITALS: BMI 25.2
[2023-09-02] MEDS: Carvedilol 12.5 MG Tablet GT (08:41)
[2023-09-02] MEDS: Colchicine 0.6 MG TABLET GT (08:41)
[2023-09-02] MEDS: Arthritis Pain Compound 60 CLICK TUBE TOPICAL (08:41)
[2023-09-02] MEDS: Enoxaparin 40 MG/0.4 ML Syringe SC (08:41)
[2023-09-02] MEDS: guaiFENesin 10 ML UDC (200MG/10ML) GT (08:41)
[2023-09-02] MEDS: Aspirin 81 MG TAB.CHEW GT (08:41)
[2023-09-02] MEDS: Potassium Chloride Oral Soln 20 MEQ/15 ML UDC 40 MEQ GT (08:41)
[2023-09-02] MEDS: Nystatin Powder 15gm Bottle 1 APPLIC TOPICAL (08:42)
[2023-09-02] MEDS: Chlorhexidine 480 ML 15 ML PO (08:42)
[2023-09-02 09:02] VITALS: BP 105/57; PULSE 80; RESP 18; TEMP 36.6; O2SAT 99
[2023-09-02] MEDS: Insulin Lispro 100 UNIT/ML INSULN.PEN SC (09:32)
[2023-09-02 10:00] VITALS: O2SAT 99
--- NOTE | 2023-09-02 10:00 | NURSING ---
Report called to nurse Chu at [facility]
[2023-09-02 10:26] LABS: Bedside Glucose 188 mg/dL (74-106)
== END 2023-09-02 11:16 | DRG 560 ==
PROVIDERS: Family Medicine Geriatric Medicine; Internal Medicine Gastroenterology; Admitting Provider Internal Medicine; PCP Family Medicine; Referring Provider Internal Medicine; Visit Provider Internal Medicine
PROC: 0DJ08ZZ Inspection of Upper Intestinal Tract, Via Natural or Artificial Opening Endoscopic (ICD-10-PCS; CPT 43235; principal; 2023-08-22 08:40)
DX: S22.41XD Multiple fractures of ribs, right side, subsequent encounter for fracture with routine healing (principal); I13.0 Hypertensive heart and chronic kidney disease with heart failure and stage 1 through stage 4 chronic kidney disease, or unspecified chronic kidney disease; I48.21 Permanent atrial fibrillation; I67.1 Cerebral aneurysm, nonruptured; K94.29 Other complications of gastrostomy; L89.621 Pressure ulcer of left heel, stage 1; E11.22 Type 2 diabetes mellitus with diabetic chronic kidney disease; I50.9 Heart failure, unspecified; N18.31 Chronic kidney disease, stage 3a; E11.51 Type 2 diabetes mellitus with diabetic peripheral angiopathy without gangrene; Z79.4 Long term (current) use of insulin; I65.23 Occlusion and stenosis of bilateral carotid arteries; D64.9 Anemia, unspecified; E83.52 Hypercalcemia; M10.062 Idiopathic gout, left knee; I25.5 Ischemic cardiomyopathy; I25.10 Atherosclerotic heart disease of native coronary artery without angina pectoris; I69.319 Unspecified symptoms and signs involving cognitive functions following cerebral infarction; Z95.828 Presence of other vascular implants and grafts; B95.62 Methicillin resistant Staphylococcus aureus infection as the cause of diseases classified elsewhere; Z86.711 Personal history of pulmonary embolism; Z98.1 Arthrodesis status; Z87.891 Personal history of nicotine dependence; Z79.01 Long term (current) use of anticoagulants; V86.59XD Driver of other special all-terrain or other off-road motor vehicle injured in nontraffic accident, subsequent encounter; S42.101D Fracture of unspecified part of scapula, right shoulder, subsequent encounter for fracture with routine healing; S12.400D Unspecified displaced fracture of fifth cervical vertebra, subsequent encounter for fracture with routine healing; S12.500D Unspecified displaced fracture of sixth cervical vertebra, subsequent encounter for fracture with routine healing; S12.600D Unspecified displaced fracture of seventh cervical vertebra, subsequent encounter for fracture with routine healing; S01.511D Laceration without foreign body of lip, subsequent encounter; Z79.899 Other long term (current) drug therapy; T81.31XD Disruption of external operation (surgical) wound, not elsewhere classified, subsequent encounter; S06.5XAD Traumatic subdural hemorrhage with loss of consciousness status unknown, subsequent encounter
CPT/HCPCS: 36415; 71045; 80048; 80053; 80202; 82040; 82306; 82962; 83735; 83970; 84100; 84443; 84550; 85014; 85018; 85025; 85027; 92507; 92523; 92526; 93005; 94668; 97110; 97112; 97140; 97161; 97167; 97530; 97535; 97802; 97803; J3489; J7030; J7040; J7050; A4216; J3486; J7799

== ENCOUNTER 2023-11-17 07:17 | Day surgery (SDC) | payer MEDICARE, OTHER, SELFPAY ==
[2023-11-17] VITALS (7 sets, daily range): BP systolic 81–99; BP diastolic 46–64; PULSE 52–85; RESP 16–18; TEMP 36–36.2; O2SAT 95–97; BMI 29.5
[2023-11-17 08:21] LABS: Bedside Glucose 136 mg/dL (74-106)
[2023-11-17] MEDS: Lactated Ringers 1,000 ML 15 ML IV (08:31)
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
--- NOTE | 2023-11-17 09:13 | OP.CCLET_ITS ---
11/17/2023 Zaki Wright Re : Upper GI endoscopy procedure for Vitaly Calderón Kyle This procedure was performed on October. My impressions and recommendations are as follows: Impressions : - Normal esophagus. - Intact gastrostomy with a patent G-tube present characterized by healthy appearing mucosa. - No gross lesions in the duodenal bulb. - The PEG was cut externally, grasped, and removed with the scope because it was no longer necessary. - No specimens collected. Recommendations : - Discharge patient to home. - Resume previous diet. - Continue present medications. My findings are described in the full procedure note, which is enclosed. If I can be of further assistance, please feel free to contact me at . Sincerely, Gumaro Viramontes, 11/17/2023 9:12:36 AM This report has been signed electronically.
--- NOTE | 2023-11-17 09:13 | OP.EGD_ITS ---
Patient Name: Vitaly Boone Procedure Date: 11/17/2023 8:53 AM Date of : 1940 Age: 82 Procedure: Upper GI endoscopy Indications: Remove PEG tube (no longer needed) Providers: Gumaro Viramontes DO Medicines: Monitored Anesthesia Care Patient Profile: This is an 82 year old male. Refer to note in patient chart for documentation of history and physical. Patient has symptoms of dysphagia with both liquids and solids. Complications: No immediate complications. Procedure: Pre-Anesthesia Assessment: - Prior to the procedure, a History and Physical was performed, and patient medications and allergies were reviewed. The patient is competent. The risks and benefits of the procedure and the sedation options and risks were discussed with the patient. All questions were answered and informed consent was obtained. Patient identification and proposed procedure were verified by the physician in the pre-procedure area. Mental Status Examination: alert and oriented. Airway Examination: normal oropharyngeal airway and neck mobility. Respiratory Examination: clear to auscultation. CV Examination: normal. Prophylactic Antibiotics: The patient does not require prophylactic antibiotics. Prior Anticoagulants: The patient has taken no anticoagulant or antiplatelet agents. ASA Grade Assessment: II - A patient with mild systemic disease. After reviewing the risks and benefits, the patient was deemed in satisfactory condition to undergo the procedure. The anesthesia plan was to use monitored anesthesia care (MAC). Immediately prior to administration of medications, the patient was re-assessed for adequacy to receive sedatives. The heart rate, respiratory rate, oxygen saturations, blood pressure, adequacy of pulmonary ventilation, and response to care were monitored throughout the procedure. The physical status of the patient was re-assessed after the procedure. After obtaining informed consent, the endoscope was passed under direct vision. Throughout the procedure, the patient's blood pressure, pulse, and oxygen saturations were monitored continuously. The Endoscope was introduced through the mouth, and advanced to the second part of duodenum. The upper GI endoscopy was accomplished without difficulty. The patient tolerated the procedure well. Scope In: 9:04:11 AM Scope Out: 9:08:05 AM Total Procedure Duration Time 0 hours 3 minutes 54 seconds Findings: The examined esophagus was normal. There was evidence of an intact gastrostomy with a patent G-tube present in the gastric body. This was characterized by healthy appearing mucosa. The PEG required removal because it was no longer necessary. The PEG was cut externally, grasped, and removed with the scope. Removal was easily accomplished. No other significant abnormalities were identified in a careful examination of the stomach. No gross lesions were noted in the duodenal bulb. Impression: - Normal esophagus. - Intact gastrostomy with a patent G-tube present characterized by healthy appearing mucosa. - No gross lesions in the duodenal bulb. - The PEG was cut externally, grasped, and removed with the scope because it was no longer necessary. - No specimens collected. Recommendation: - Discharge patient to home. - Resume previous diet. - Continue present medications. Procedure Code(s): --- Professional --- 33927, Esophagogastroduodenoscopy, flexible, transoral; with removal of foreign body(s) CPT copyright 2021 [employer]. All rights reserved. The codes documented in this report are preliminary and upon remote inpatient coder review may be revised to meet current compliance requirements. Gumaro Viramontes DO 11/17/2023 9:12:36 AM This report has been signed electronically. Number of Addenda: 0 Note Initiated On: 11/17/2023 8:53 AM
== END 2023-11-17 10:56 | disposition home or self-care (01) ==
LOC: EN 07:23 → AC 07:27
PROVIDERS: PCP Family Medicine; Referring Provider Family Medicine; Visit Provider Internal Medicine Gastroenterology
PROC: 0DJ08ZZ Inspection of Upper Intestinal Tract, Via Natural or Artificial Opening Endoscopic (ICD-10-PCS; CPT 43235; principal; 2023-11-17 08:40)
DX: Z43.1 Encounter for attention to gastrostomy (principal); I13.0 Hypertensive heart and chronic kidney disease with heart failure and stage 1 through stage 4 chronic kidney disease, or unspecified chronic kidney disease; I50.9 Heart failure, unspecified; Z79.4 Long term (current) use of insulin; N18.30 Chronic kidney disease, stage 3 unspecified; I25.10 Atherosclerotic heart disease of native coronary artery without angina pectoris; I69.318 Other symptoms and signs involving cognitive functions following cerebral infarction; Z95.1 Presence of aortocoronary bypass graft; Z79.01 Long term (current) use of anticoagulants; Z79.82 Long term (current) use of aspirin; Z79.899 Other long term (current) drug therapy; Z87.891 Personal history of nicotine dependence
CPT/HCPCS: 43235; 82962; J7120; J2405

== ENCOUNTER → 2024-08-23 | Outpatient (CLI) | payer MEDICARE, OTHER, SELFPAY ==
--- NOTE | 2024-08-23 08:10 | ART_ITS ---
Reason For Study: Stricture of Artery Procedure A bilateral lower extremity continuous wave Doppler with analog waveform analysis and ankle brachial indexes. Left Segmental Pressures Left brachial= 144mmHg. Left posterior tibial artery = 119mmHg. Left dorsalis pedis artery = 127mmHg. Left digit = 97 mmHg. The left posterior tibial artery waveforms are biphasic. The left dorsalis pedis waveforms are biphasic. Right Segmental Pressures Right brachial= 148mmHg. Right posterior tibial artery = 77mmHg. Right dorsalis pedis artery = 81mmHg. Right digit = 65 mmHg. The right posterior tibial artery waveforms are monophasic. The right dorsalis pedis waveforms are monophasic. Indices The right ankle brachial index by the posterior tibial artery is 0.52. The right ankle brachial index by the dorsalis pedis is 0.55. The right digital-brachial index is 0.44. The left ankle brachial index by the posterior tibial artery is 0.80. The left ankle brachial index by the dorsalis pedis is 0.86. The left digital-brachial index is 0.66. VL/Ankle Brachial Index Interpretation Summary The right resting ankle-brachial index appears moderately abnormal. Resting ank le-brachial indices appear mildly abnormal bilaterally. Ordering Physician: Adolfo Grossman Referring Physician: Zaki Wright Performed By: Juwan Villavicencio RVT
--- NOTE | 2024-08-23 08:10 | AAVD_ITS ---
Reason For Study: Stricture of Artery Aorta Measurements Aorta Doppler Measurements Proximal aorta measures3.18 x 3.55cm. in cross- Peak systolic flow velocities within the proximal sectional axis. aorta measure 45.1 cm/sec. Proximal aorta measures3.59cm. in longitudinal Peak systolic flow velocities within the mid aorta axis. measure 43.3 cm/sec. Mid aorta measures2.46 x 2.52cm. in cross- Peak systolic flow velocities within the distal sectional axis. aorta measure 27.0 cm/sec. Mid aorta measures2.40cm. in longitudinal axis. Distal aorta measures2.14 x 2.32cm. in cross- sectional axis. Distal aorta measures2.19cm. in longitudinal axis. Left Iliac Artery Left iliac artery measures 0.93 x 0.98 cm. in the cross-sectional axis. Left iliac artery measures 0.95 cm. in the longitudinal axis. Peak systolic velocity in the left iliac artery measures 88.6 cm/sec. Right Iliac Artery Right iliac artery measures 1.06 x 1.06 cm. in the cross-sectional axis. Right iliac artery measures 1.04 cm. in the longitudinal axis. Peak systolic velocity in the right iliac artery measures 37.6 cm/sec. VL/Abd Aortic/IVC Duplex scan Interpretation Summary 3.6cm infrarenal aortic aneurysm. Ordering Physician: Adolfo Grossman Referring Physician: Zaki Wright Performed By: Juwan Villavicencio, RVT
== END | disposition home or self-care (01) ==
LOC: CVS 08:05
PROVIDERS: PCP Family Medicine; Referring Provider Surgery Vascular Surgery; Visit Provider Surgery Vascular Surgery
DX: Z48.812 Encounter for surgical aftercare following surgery on the circulatory system (principal); I77.1 Stricture of artery; I70.213 Atherosclerosis of native arteries of extremities with intermittent claudication, bilateral legs; I71.40 Abdominal aortic aneurysm, without rupture, unspecified; I65.23 Occlusion and stenosis of bilateral carotid arteries
CPT/HCPCS: 93922; 93978